=== PATIENT | female | born 1990 | race Caucasian/White ===

== ENCOUNTER 2017-04-28 02:59 | Inpatient (IN) | payer OTHER, BC, MEDICAID ==
[~2017-04-28] VITALS: Ht 157.5 cm; Wt 70.5 kg
[2017-04-28] VITALS (44 sets, daily range): BP systolic 118–199; BP diastolic 63–121
[2017-04-28 03:47] LABS: BILIRUBIN,URINE NEGATIVE (NEGATIVE); KETONES,URINE NEGATIVE (NEGATIVE); LEUKOCYTE ESTERASE ,URINE NEGATIVE (NEGATIVE); NITRITE,URINE NEGATIVE (NEGATIVE); PH,URINE 7 (5-9); PROTEIN,URINE NEGATIVE (NEGATIVE); UROBILINOGEN,URINE NORMAL (NORMAL)
[2017-04-28] MEDS: D5 LR IV SOLUTION 1,000 ML IV SCH ×2 (03:51→11:45)
[2017-04-28] MEDS ORDERED: PREN-142 PO (03:55)
[2017-04-28 04:21] LABS: BASOPHILS % (AUTO) 0 % (0-10); EOSINOPHILS # (AUTO) 0.1 10^3/uL (0.0-0.3); EOSINOPHILS % (AUTO) 1 % (0-10); LYMPHOCYTES % (AUTO) 18 % (12-44); MEAN CORPUSCULAR HEMOGLOBIN 27 PG (25-34); MEAN CORPUSCULAR HGB CONC 34 G/DL (32-36); MEAN CORPUSCULAR VOLUME 79 FL (80-99); MEAN PLATELET VOLUME 11.6 FL (7.4-10.4); MONOCYTES # (AUTO) 0.9 X 10^3 (0.0-1.0); MONOCYTES % (AUTO) 8 % (0-12); NEUTROPHILS # (AUTO) 8.2 X 10^3 (1.8-7.8); NEUTROPHILS % (AUTO) 73 % (42-75); PLATELET COUNT 216 10^3/uL (130-400); RED BLOOD COUNT 4.28 10^6/uL (4.35-5.85); RED CELL DISTRIBUTION WIDTH 13.3 % (10.0-14.5); WHITE BLOOD COUNT 11.2 10^3/uL (4.3-11.0)
[2017-04-28] MEDS ORDERED: SUFENTA 0.6MCG/ML BUPIVA 0.125 100 ML ONE (07:13)
[2017-04-28] MEDS ORDERED: OXYTOCIN/NORMAL SALINE 500 ML IV SCH ×2 (07:24→07:26)
--- NOTE | 2017-04-28 07:24 | History & Physical ---
History and Physical Date Seen by Provider: Apr 28, 2017 Time Seen by Provider: 07:22 this patient is a 26-year-old G1 white female with a due date of May 09, 2017 putting her now at 38-3/7 weeks gestation. She presented with complaint of contractions. She was found to be in active labor. She denies rupture membranes or bleeding at the time of admission however since admission she has begun to leak fairly persistently. She does feel baby moving. She had a negative GBS culture after 35 weeks gestation. She's had no problems with this . Allergies are none Medications are vitamins Past medical history, past surgical history, past obstetric history, family history, social histories are per the antepartum record HEENT exam is normal Neck is supple no lymphadenopathy no thyromegaly Abdomen is gravid soft nontender nondistended Extremities show clubbing cyanosis. There is no Homans sign. Pelvic exam now shows a cervix that is of little bit more than 6 90 percent effaced soft and stretchy. presenting Part is the vertex at the 0 station. Amniotomy is performed with release of a small amount of clear fluid. Laboratory Tests 04/28/17 03:50 Vital Signs Date Time Temp Pulse Resp B/P (MAP) Pulse Ox O2 Delivery O2 Flow Rate FiO2 04/28/17 03:24 98.1 97 18 134/96 assessment and plan term at 38-3/7 weeks gestation and spontaneous labor. Patient will be allowed an epidural. We anticipate a vaginal delivery 38-3/7 weeks' gestation with spontaneous labor Allergies and Home Medications Allergies Coded Allergies: No Known Drug Allergies (Unverified , 04/28/17) Home Medications Vit No.124/Iron/FA 1 Each Tablet, 1 EACH PO DAILY, (Reported) Clinical Quality Measures DVT/VTE Risk/Contraindication: Risk Factor Score Per Nursin RFS Level Per Nursing on Admit: 1=Low/No VTE PPX JOHN PAUL GILMAN MD Apr 28, 2017 7:24 am
[2017-04-28] MEDS ORDERED: BUPIVACAINE 0.25% 30 ML (SENSORCAINE) VIAL ONE (07:30)
[2017-04-28] MEDS ORDERED: oxyCODONE/APAP 10/325MG (PERCOCET 10) TABLET PO PRN (07:30)
[2017-04-28] MEDS ORDERED: ONDANSETRON 4 MG/2 ML (SDV) Z0FRAN IVP PRN (07:30)
[2017-04-28] MEDS ORDERED: BENZOCAINE/MENTHOL (DERMOPLAST) 56 ML CAN TP PRN (07:30)
[2017-04-28] MEDS ORDERED: TETANUS,DIPTH,PERTUSS P/F (BOOSTRIX) 0.5 ML VIAL IM ONE (07:30)
[2017-04-28] MEDS ORDERED: LIDOCAINE PF 2% 5 ML (XYLOCAINE) VIAL ONE (07:30)
[2017-04-28] MEDS ORDERED: fentaNYL INJECTION 100 MCG/2 ML AMP ONE (07:30)
[2017-04-28] MEDS ORDERED: LACTATED RINGERS 1,000 ML IV ONE ×2 (08:49)
[2017-04-28] MEDS ORDERED: LIDOCAINE/EPI 2% 1:200,00 (XYLOCAINE) 10 ML VIAL ONE (08:54)
[2017-04-28] MEDS ORDERED: ONDANSETRON 4 MG/2 ML (SDV) Z0FRAN IV PRN (09:00)
[2017-04-28] MEDS ORDERED: EPIDURAL (SUFENTA 0.6MCG/ML BUPIVA 0.125%) 100 ML BAG EPI PRN (09:00)
[2017-04-28] MEDS ORDERED: NALOXONE 0.4 MG/ML 1 ML (NARCAN) VIAL IV PRN (09:00)
[2017-04-28] MEDS: KETOROLAC 30 MG/ML VIAL IV SCH ×2 (14:08→21:01)
[2017-04-28] MEDS: DOCUSATE SODIUM 100 MG (COLACE) CAP PO SCH (21:01)
[2017-04-28] MEDS: CATHETER FLUSH 10 ML SYR IV SCH (22:00)
[2017-04-29] VITALS: BP 115/78
--- NOTE | 2017-04-29 00:53 | OPERATIVE REPORT ---
DATE OF SERVICE: 04/28/2017 DELIVERY NOTE The patient delivered by term spontaneous vaginal delivery at 38 and 3/7 weeks gestation, a viable female with Apgars of 8 and 9 at 1 and 5 minutes respectively. Weight is 7 pounds and 4 ounces. time of 12:29 and cord blood gas of 7.23. The was delivered over midline episiotomy that was performed at the patient's request when she could not push the baby through the perineum and baby's heart rate had been episodically down into the 80s, the episiotomy shortened the second stage of labor and allowed a smooth controlled delivery. The was bulb suctioned on delivery of the head and again on completion of delivery. The infant was dried and warmed, and suctioned and stimulated. The umbilical cord was doubly clamped and cut, and the infant passed to mom's abdomen. Cord bloods were obtained. The placenta delivered spontaneously Par[place] and was normal with a 3-vessel cord. The placenta did go to pathology for permanent section. Cord blood gas was obtained secondary to the relatively deep decels. The cervix, vagina, rectum and perineum were examined and were found intact, except for the midline episiotomy, which was repaired with a single suture of 3-0 Vicryl in the usual manner to good reapproximation and good hemostasis. There were several overt condyloma on the perineum, one at the introitus and one up on the labia majora, inferiorly on the right. These four lesions were removed sharply under the epidural and augmented local in the perineum for the delivery. Those specimens were sent to pathology for permanent section. These had been noted during the and the patient had asked for them to be removed. The sponge and needle counts were correct on completion of the delivery and the repair. The patient tolerated the delivery and the repair well. Estimated blood loss was around 200 mL. The patient remained in the LDR for recovery. The baby remained with the mom. Job ID: [id number] DocumentID: [id number] Dictated Date: 04/28/2017 12:50:49 Crushing Machine Operator Date: 04/28/2017 23:59:50 Dictated By: JOHN PAUL GILMAN MD MTDD
[2017-04-29] MEDS: KETOROLAC 30 MG/ML VIAL IV SCH (03:11)
[2017-04-29 04:15] VITALS: BP 104/72
[2017-04-29 05:13] LABS: BASOPHILS % (AUTO) 0 % (0-10); EOSINOPHILS % (AUTO) 0 % (0-10); LYMPHOCYTES # (AUTO) 1.8 X 10^3 (1.0-4.0); LYMPHOCYTES % (AUTO) 12 % (12-44); MEAN CORPUSCULAR HEMOGLOBIN 27 PG (25-34); MEAN CORPUSCULAR HGB CONC 33 G/DL (32-36); MEAN CORPUSCULAR VOLUME 80 FL (80-99); MEAN PLATELET VOLUME 10.6 FL (7.4-10.4); MONOCYTES # (AUTO) 1.1 X 10^3 (0.0-1.0); MONOCYTES % (AUTO) 7 % (0-12); NEUTROPHILS # (AUTO) 11.9 X 10^3 (1.8-7.8); NEUTROPHILS % (AUTO) 80 % (42-75); PLATELET COUNT 169 10^3/uL (130-400); RED BLOOD COUNT 3.57 10^6/uL (4.35-5.85); RED CELL DISTRIBUTION WIDTH 13.2 % (10.0-14.5); WHITE BLOOD COUNT 14.9 10^3/uL (4.3-11.0)
[2017-04-29] MEDS: CATHETER FLUSH 10 ML SYR IV SCH (06:23)
--- NOTE | 2017-04-29 07:46 | Progress Note-Standard ---
Standard Progress Note Progress Notes/Assess & Plan Date Seen by Provider: Apr 29, 2017 Time Seen by Provider: 07:42 Progress/Assessment & Plan this patient is without complaint. She is ambulating, voiding, tolerating by mouth, has good pain control. Patient denies chest pain, denies shortness of breath, denies nausea vomiting, denies headache. Vital Signs Date Time Temp Pulse Resp B/P (MAP) Pulse Ox O2 Delivery O2 Flow Rate FiO2 04/29/17 04:15 96.4 97 18 104/72 97 Room Air 04/29/17 00:00 97.4 97 19 115/78 97 Room Air 04/28/17 20:00 98.3 104 18 121/80 98 Room Air 04/28/17 14:30 105 18 122/71 04/28/17 14:15 105 18 121/72 04/28/17 14:05 122 18 124/88 04/28/17 13:15 98.7 115 18 127/74 04/28/17 13:00 101 18 126/70 04/28/17 12:46 112 18 128/94 04/28/17 12:32 113 18 148/64 04/28/17 12:18 114 18 199/121 04/28/17 12:01 130 18 141/86 04/28/17 11:47 94 18 130/79 04/28/17 11:33 86 18 120/69 04/28/17 11:17 90 18 121/66 04/28/17 11:02 97.9 90 18 118/72 04/28/17 10:48 83 18 119/87 04/28/17 10:31 84 18 120/83 04/28/17 10:16 86 18 125/76 04/28/17 10:02 91 18 145/76 04/28/17 09:47 92 18 124/76 99 04/28/17 09:32 100 18 133/77 99 04/28/17 09:18 97 18 125/70 100 04/28/17 09:02 97.4 93 18 133/63 100 04/28/17 08:49 96 18 125/82 99 04/28/17 08:30 99 18 145/68 100 04/28/17 08:27 101 18 126/82 100 04/28/17 08:25 101 18 134/85 100 04/28/17 08:22 103 18 138/80 100 04/28/17 08:18 52 18 139/83 100 04/28/17 08:16 105 18 134/80 100 04/28/17 08:12 103 18 139/73 99 04/28/17 08:09 103 18 139/73 100 04/28/17 08:06 104 18 136/83 100 04/28/17 08:03 105 18 139/85 100 04/28/17 08:00 104 18 132/85 100 04/28/17 07:59 97.2 104 18 133/85 99 04/28/17 07:57 110 18 143/104 99 04/28/17 07:54 111 18 137/101 96 04/28/17 07:51 100 18 134/93 96 04/28/17 07:48 103 18 134/91 96 04/28/17 07:45 106 18 147/99 96 Vital signs are stable. Patient is afebrile. Fundus is firm below the umbilicus and nontender. Extremities show no clubbing cyanosis. There is no Homans sign. There is some pretibial pitting edema that is normal. Assessment and plan day number 1 status post term spontaneous vaginal delivery at 38-3/7 weeks gestation. Patient is doing well and plan is for routine convalescence care with discharge home tomorrow. If patient request discharge home today then that would be allowed. Final Diagnosis 38-3/7 weeks spontaneous vaginal delivery JOHN PAUL GILMAN MD Apr 29, 2017 7:46 am
[2017-04-29] MEDS ORDERED: OXYC-465 PO (07:50)
[2017-04-29] MEDS ORDERED: IBUP-1780 PO (07:50)
[2017-04-29] MEDS ORDERED: DOCU100C37 PO (07:50)
--- NOTE | 2017-04-29 07:51 | Discharge Instructions ---
Discharge Instructions Discharge Medications New, Converted or Re-Newed RX: RX on Chart Patient Instructions Patient Instructions: as directed Return to The Hospital For: as directed Activity & Diet Discharge Diet: No Restrictions Activity as Tolerated: No Orders-Post D/C & Referrals Follow Up Appt: Call to make follow up appt. for patient in 4 weeks. Activity Per routine post vaginal delivery instructions. Diet as tolerated Patient may shower or tub bathe as desired. JOHN PAUL IGLMAN MD Apr 29, 2017 7:51 am
[2017-04-29 09:30] VITALS: BP 109/71
[2017-04-29] MEDS: IBUPROFEN 800 MG (MOTRIN) TAB PO SCH ×2 (10:43→15:53)
[2017-04-29] MEDS: DOCUSATE SODIUM 100 MG (COLACE) CAP PO SCH (10:43)
[2017-04-29 12:35] VITALS: BP 122/70
--- NOTE | 2017-04-29 12:48 | Anesthesia-Regional Post-Op ---
Regional Patient Condition Mental Status: Alert, Oriented x3 Circulation: Same as Pre-Op Headache: Absent Sensation: Full Recovery Motor Block: Absent Post Op Complications Complications None Follow Up Care/Instructions Patient Instructions None needed. Anesthesia/Patient Condition Patient is doing well, no complaints, stable vital signs, no apparent adverse anesthesia problems. No complications reported per nursing. [place] [facility] [place] DENEEN COBB CRNA Apr 29, 2017 12:48
[2017-04-29 18:45] VITALS: BP 122/70
== END 2017-04-29 18:45 | disposition home or self-care (01) | DRG 983 ==
LOC: WSo 02:59 → LDRP 03:00 → WSo 03:25 → LDRP 15:00
PROVIDERS: ADMIT Obstetrics & Gynecology; ATTEND Obstetrics & Gynecology
PROC: 0W8NXZZ Division of Female Perineum, External Approach (ICD-10-PCS; principal; 2017-04-28)
PROC: 10E0XZZ Delivery of Products of Conception, External Approach (ICD-10-PCS; 2017-04-28)
PROC: 0WBN0ZZ Excision of Female Perineum, Open Approach (ICD-10-PCS; 2017-04-28)
PROC: 0UBM0ZZ Excision of Vulva, Open Approach (ICD-10-PCS; 2017-04-28)
DX: O98.32 Other infections with a predominantly sexual mode of transmission complicating childbirth (principal); A63.0 Anogenital (venereal) warts; Z3A.38 38 weeks gestation of pregnancy; Z37.0 Single live birth
CPT/HCPCS: 36415; 81000; 85025; 86850; 86900; 86901; 99212

== ENCOUNTER 2019-12-30 12:02 | Day surgery (SDC) | payer MEDICAID ==
[2019-12-30] VITALS (10 sets, daily range): BP systolic 102–126; BP diastolic 57–82
[~2019-12-30] VITALS: Ht 157.5 cm; Wt 63.6 kg
[~2019-12-30 12:02] MED LIST: DOCU100C37 PO; IBUP-1780 PO; OXYC-465 PO; PREN-142 PO
[2019-12-30] MEDS ORDERED: ceFAZolin INJECTION 1,000 MG in WATER (STERILE) FOR INJECTION 10 ML IV ONE (12:30)
[2019-12-30] MEDS: LACTATED RINGERS 1,000 ML IV PRN ×2 (12:41→14:55)
[2019-12-30 12:54] LABS: BASOPHILS % (AUTO) 0 % (0-10); EOSINOPHILS % (AUTO) 0 % (0-10); HEMATOCRIT 37 % (35-52); HEMOGLOBIN 11.8 G/DL (11.5-16.0); LYMPHOCYTES # (AUTO) 1.7 X 10^3 (1.0-4.0); LYMPHOCYTES % (AUTO) 21 % (12-44); MEAN CORPUSCULAR HEMOGLOBIN 23 PG (25-34); MEAN CORPUSCULAR HGB CONC 32 G/DL (32-36); MEAN CORPUSCULAR VOLUME 73 FL (80-99); MEAN PLATELET VOLUME 10.4 FL (7.4-10.4); MONOCYTES # (AUTO) 0.6 X 10^3 (0.0-1.0); MONOCYTES % (AUTO) 8 % (0-12); NEUTROPHILS # (AUTO) 5.8 X 10^3 (1.8-7.8); NEUTROPHILS % (AUTO) 71 % (42-75); PLATELET COUNT 205 10^3/uL (130-400); RED CELL DISTRIBUTION WIDTH 18.6 % (10.0-14.5); WHITE BLOOD COUNT 8.2 10^3/uL (4.3-11.0)
--- OUTSIDE RECORDS SUMMARY | 2019-12-30 13:05 | XMS REPORT | Continuity of Care Document ---
Author Organization Unknown Address Unknown Phone Unavailable Allergies Active Description Code Type Severity Reaction Onset Reported/Identified Relationship to Patient Clinical Status Yes NO KNOWN DRUG ALLERGIES UNKNOWN NO KNOWN DRUG ALLERG Yes NO KNOWN DRUG ALLERGIES UNKNOWN UNKNOWN Yes No Known Drug Allergies [id number] Drug Allergy Unknown N/A 04/28/2017 Medications There is no data. 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 04/29/2017 JOHN PAUL GILMAN MD, Ot O98.32 OTH INFECTIONS W SEXL MODE OF TRANSMISS 04/29/2017 JOHN PAUL GILMAN MD Ot Z37.0 SINGLE LIVE 04/29/2017 JOHN PAUL GILMAN MD, Ot Z3A.38 38 WEEKS GESTATION OF 08/14/2017 Rosey Gallo W 786.2 COUGH 08/14/2017 Rosey Gallo W R05 COUGH 08/14/2017 W 786.2 COUGH 08/14/2017 W 787.91 BAHRAT RRHEA 08/14/2017 W K52.89 OTH ER SPECIFIED NONINFECTIVE GASTROENTERITIS AND COLITIS 08/14/2017 W R05 COUGH 08/14/2017 Sabino Rosey W 786.2 COUGH 08/14/2017 Sabino Rosey W R05 COUGH 05/09/2018 W 462 ACUTE PHARYNGITIS 05/09/2018 W J02.9 ACUT E PHARYNGITIS, UNSPECIFIED 05/14/2018 Cheryle Rocha W 462 ACUTE PHARYNGITIS 05/14/2018 Cheryle Rocha W J02.9 ACUTE PHARYNGITIS, UNSPECIFIED 05/14/2018 W 462 ACUTE PHARYNGITIS 05/14/2018 W J02.9 ACUT E PHARYNGITIS, UNSPECIFIED Procedures Code Description Performed By Per saul On [id number] EX CISION OF VULVA, OPEN APPROACH 04/28/2017 [id number] DI VISION OF FEMALE PERINEUM, EXTERNAL AP 04/28/2017 [id number] EX CISION OF FEMALE PERINEUM, OPEN APPROA 04/28/2017 [id number] DE LIVERY OF PRODUCTS OF CONCEPTION, EXTE 04/28/2017 Results Test Result Range Complete urinalysis with reflex to cultu re - 04/28/17 03:35 Urine color determination YELLOW NRG Urine clarity determination CLEAR NR G Urine pH measurement by test strip 7 5-9 Specific gravity of urine by test strip 1.010 1.016-1.022 Urine protein assay by test strip, semi-quantitative NEGATIVE NEGATIVE Urine glucose detection by automated test strip NE GATIVE NEGATIVE Erythrocytes detection in urine sediment by light micr oscopy NEGATIVE NEGATIVE Urine ketones detection by automated test strip NE GATIVE NEGATIVE Urine nitrite detection by test strip NEGATIVE NEGATIVE Urine total bilirubin detection by test strip NEGA TIVE NEGATIVE Urine urobilinogen measurement by automated test strip (mass/volume) NORMAL NORMAL Urine leukocyte esterase detection by dipstick NEG ATIVE NEGATIVE Automated urine sediment erythrocyte cou nt by microscopy (number/high power field) NONE NRG Automated urine sediment leukocyte count by microscopy (number/high power field) NONE NRG Bacteria detection in urine sediment by light microsco py NEGATIVE NRG Squamous epithelial cells detection in u rine sediment by light microscopy 2-5 NRG Crystals detection in urine sediment by light microsco py NONE NRG Casts detection in urine sediment by light microscopy NONE NRG Mucus detection in urine sediment by light microscopy SMALL NRG Complete urinalysis with reflex to culture NO NRG Complete blood count (CBC) with automate d white blood cell (WBC) differential - 04/28/17 03:50 Blood leukocytes automated count (number/volume) 11.2 10*3/uL 4.3-11.0 Blood erythrocytes automated count (number/volume) 4.28 10*6/uL 4.35-5.85 Venous blood hemoglobin measurement (mass/volume) 11.5 g/dL 11.5-16.0 Blood hematocrit (volume fraction) 34 % 35-52 Automated erythrocyte mean corpuscular volume 79 [ foz_us] 80-99 Automated erythrocyte mean corpuscular h emoglobin (mass per erythrocyte) 27 pg 25-34 Automated erythrocyte mean corpuscular h emoglobin concentration measurement (mass/volume) 34 g/dL 32-36 Automated erythrocyte distribution width ratio 13. 3 % 10.0- 14.5 Automated blood platelet count (count/volume) 216 10*3/uL 130-400 Automated blood platelet mean volume measurement 11.6 [foz_us] 7.4-10.4 Automated blood neutrophils/100 leukocytes 73 % 42-75 Automated blood lymphocytes/100 leukocytes 18 % 12-44 Blood monocytes/100 leukocytes 8 % 0-12 Automated blood eosinophils/100 leukocytes 1 % 0-10 Automated blood basophils/100 leukocytes 0 % 0-10 Blood neutrophils automated count (number/volume) 8.2 10*3 1.8-7.8 Blood lymphocytes automated count (number/volume) 2.0 10*3 1.0-4.0 Blood monocytes automated count (number/volume) 0. 9 10*3 0.0-1.0 Automated eosinophil count 0.1 10*3/uL 0 .0-0.3 Automated blood basophil count (count/volume) 0.0 10*3/uL 0.0-0.1 Blood type T Indirect antibody screen pa henna - 04/28/17 03:50 ABO+Rh group AP NRG Transfusion band number [id number] NR Blood group antibody screen NEGATIVE NR G Complete blood count (CBC) with automate d white blood cell (WBC) differential - 04/29/17 05:05 Blood leukocytes automated count (number/volume) 14.9 10*3/uL 4.3-11.0 Blood erythrocytes automated count (number/volume) 3.57 10*6/uL 4.35-5.85 Venous blood hemoglobin measurement (mass/volume) 9.6 g/dL 11.5-16.0 Blood hematocrit (volume fraction) 29 % 35-52 Automated erythrocyte mean corpuscular volume 80 [ foz_us] 80-99 Automated erythrocyte mean corpuscular h emoglobin (mass per erythrocyte) 27 pg 25-34 Automated erythrocyte mean corpuscular h emoglobin concentration measurement (mass/volume) 33 g/dL 32-36 Automated erythrocyte distribution width ratio 13. 2 % 10.0- 14.5 Automated blood platelet count (count/volume) 169 10*3/uL 130-400 Automated blood platelet mean volume measurement 10.6 [foz_us] 7.4-10.4 Automated blood neutrophils/100 leukocytes 80 % 42-75 Automated blood lymphocytes/100 leukocytes 12 % 12-44 Blood monocytes/100 leukocytes 7 % 0-12 Automated blood eosinophils/100 leukocytes 0 % 0-10 Automated blood basophils/100 leukocytes 0 % 0-10 Blood neutrophils automated count (number/volume) 11.9 10*3 1.8-7.8 Blood lymphocytes automated count (number/volume) 1.8 10*3 1.0-4.0 Blood monocytes automated count (number/volume) 1. 1 10*3 0.0-1.0 Automated eosinophil count 0.0 10*3/uL 0 .0-0.3 Automated blood basophil count (count/volume) 0.0 10*3/uL 0.0-0.1 Mycoplasma - 08/14/17 12:04 Mycoplasma Positive Negative Other Culture - 05/14/18 11:55 FINAL CULTURE RESULTS NO Pathogens Isolated MEDIA PLATED Setup at 12:07 on 05/14/2018 Encounters ACCT No. Visit Date/Time Discharge Status Pt. Type Provider Facility Loc./Unit Complaint [id number] 05/14/2018 11:52:00 05/14/2018 23:59: 00 DIS Outpatient Cheryle Rocha [id number] 08/14/2017 12:01:00 08/14/2017 23:59: 00 DIS Outpatient Rosey Gallo [id number] 05/14/2018 11:33:00 Document Registration [id number] 05/09/2018 10:42:00 Document Registration [id number] 08/14/2017 11:27:00 Document Registration [id number] 04/28/2017 03:25:00 017 18:45:00 DIS Inpatient MUKUL ELAM, JOHN PAUL Senior [facility] LAB[facility]
[2019-12-30] MEDS ORDERED: MIDAZOLAM 2 MG/2 ML (VERSED) VIAL ONE (14:19)
[2019-12-30] MEDS ORDERED: fentaNYL INJECTION 100 MCG/2 ML AMP ONE (14:19)
[2019-12-30] MEDS ORDERED: SEVOFLURANE (ULTANE) 15 ML INHAL SOLN ONE (14:25)
[2019-12-30] MEDS ORDERED: ONDANSETRON 4 MG/2 ML (SDV) Z0FRAN ONE (14:25)
[2019-12-30] MEDS ORDERED: proPOfol 200 MG/20 ML (DIPRIVAN) VIAL IV ONE (14:25)
[2019-12-30] MEDS ORDERED: LIDOCAINE PF 2% 5 ML (XYLOCAINE) VIAL ONE (14:25)
--- NOTE | 2019-12-30 14:34 | Progress Note-Pre Operative ---
Pre-Operative Progress Note H&P Reviewed The H&P was reviewed, patient examined and no changes noted. Date Seen by Provider: Dec 30, 2019 Time Seen by Provider: 14:34 Date H&P Reviewed: Dec 30, 2019 Time H&P Reviewed: 14:34 Pre-Operative Diagnosis: Missed JOHN PAUL DAVIS MD Dec 30, 2019 14:34
[2019-12-30] MEDS ORDERED: D5 LR IV SOLUTION 1,000 ML IV SCH (14:35)
--- NOTE | 2019-12-30 14:35 | Progress Note-Post Operative ---
Post-Operative Progess Note Surgeon (s)/Enrichment Teacher (s) Surgeon JOHN PAUL GILMAN MD Enrichment Teacher: None Pre-Operative Diagnosis Missed AB Post-Operative Diagnosis same Procedure & Operative Findings Date of Procedure 12/30/19 Procedure Performed/Findings D&C Anesthesia Type geta Estimated Blood Loss Estimated blood loss (mL): 100cc Specimens/Packing Specimens Removed Uterine contents/products of conception JOHN PAUL GILMAN MD Dec 30, 2019 14:35
[2019-12-30] MEDS ORDERED: IBUP-1780 PO (14:36)
--- NOTE | 2019-12-30 14:37 | Discharge Inst-Surgical ---
Discharge Inst-Surgical Depart Medication/Instructions New, Converted or Re-Newed RX: RX on Chart Consults/Follow Up Patient Instructions: as directed Orders & Referrals Follow Up Appt: Call to make follow up appt. for patient in 2 weeks. Activity: Rest for 24 hours, than as tolerated. Please call in RX to patient pharmacy. Diet: As tolerated- shower or tub bathe as desired. No driving for 24 hours, no alcoholic beverages for 24 hours, and nothing per vagina (no tampons, douching, or intercourse) for 2 weeks. Patient to return to the clinic as soon as possible for: Temperature greater than 101F, Severe Pain, Foul discharge from incision or vagina, Excessive Bleeding (more than a period). Activity Activity as Tolerated: No Diet Discharge Diet: No Restrictions JOHN PAUL GILMAN MD Dec 30, 2019 14:37
[2019-12-30] MEDS ORDERED: HYDROcodone/APAP 10 MG/325 MG (LORTAB) TAB PO PRN (14:45)
[2019-12-30] MEDS ORDERED: KETOROLAC 30 MG/ML VIAL IVP ONE (14:45)
[2019-12-30] MEDS ORDERED: MEPERIDINE (DEMEROL) INJ 100 MG/ML IM ONE (14:45)
[2019-12-30] MEDS ORDERED: PROMETHAZINE INJ 25 MG/ML (PHENERGAN) AMP IM ONE (14:45)
[2019-12-30] MEDS ORDERED: ONDANSETRON 4 MG/2 ML (SDV) Z0FRAN IVP PRN ×2 (14:45→15:15)
--- NOTE | 2019-12-30 15:04 | Anesthesia-General Post-Op ---
General Patient Condition Mental Status/LOC: Same as Preop Cardiovascular: Satisfactory Nausea/Vomiting: Absent Respiratory: Satisfactory Pain: Controlled Complications: Absent Post Op Complications Complications None Follow Up Care/Instructions Patient Instructions None needed. Anesthesia/Patient Condition Patient Condition Patient is doing well, no complaints, stable vital signs, no apparent adverse anesthesia problems. No complications reported per nursing. CARLI COLBY CRNA Dec 30, 2019 15:04
[2019-12-30] MEDS ORDERED: morphine INJ 10 MG/ML 1ML (SYR OR VIAL) IVP ONE (15:15)
[2019-12-30] MEDS ORDERED: KETOROLAC 30 MG/ML VIAL ONE (15:23)
--- NOTE | 2019-12-31 00:56 | OPERATIVE REPORT ---
DATE OF SERVICE: 12/30/2019 PREOPERATIVE DIAGNOSIS: A 12 weeks demise. POSTOPERATIVE DIAGNOSIS: A 12 weeks demise. OPERATIVE PROCEDURE: D and C for 12-week demise/missed AB. OPERATIVE DESCRIPTION: With the patient in supine position under satisfactory general anesthesia, she was repositioned in dorsal lithotomy position in the [facility] stirrups and prepped and draped in the usual fashion for vaginal surgery. Urinary bladder had been drained prior to coming to the operating room. Weighted speculum placed in posterior fornix of vagina, cervix exposed and grasped anteriorly with single tooth tenaculum. Uterus sounded to 14 cm with uterine sound. The cervix was then serially dilated with Rai dilators to a #20 Rai and then a #9 curved suction curette was introduced and the endometrial cavity curettaged with removal of a large amount of trophoblastic and decidual appearing tissue, blood clot, membranes and debris. No specific parts were identified. The endometrial cavity was then sharply curettaged in all 4 quadrants to good uterine cry. The curved suction curette was reintroduced. All blood clot and debris were evacuated from the uterus. The curette was removed. There was minimal bleeding from the cervical os. The tenaculum was removed. There was some bleeding from the puncture site. This was touched with silver nitrate to effect hemostasis. With hemostasis assured now with sponge, needle counts correct. Estimated blood loss around 100 mL. The patient was uneventfully awakened from her general anesthesia and transferred to the recovery room in stable condition with plans for discharge home PAR. Job ID: [id number] DocumentID: [id number] Dictated Date: 12/30/2019 14:59:53 Home Care Coordinator Date: 12/31/2019 00:55:28 Dictated By: JOHN PAUL GILMAN MD
== END 2019-12-30 16:50 | disposition home or self-care (01) ==
LOC: SDC 12:02
PROVIDERS: ATTEND Obstetrics & Gynecology
DX: O02.1 Missed abortion (principal); Z11.2 Encounter for screening for other bacterial diseases; Z20.828 Contact with and (suspected) exposure to other viral communicable diseases; Z3A.12 12 weeks gestation of pregnancy
CPT/HCPCS: 59820; 85025; 87081; U0002; 36415; 87635

== ENCOUNTER 2020-10-28 15:07 | Observation (INO) | payer MEDICAID ==
[~2020-10-28] VITALS: Ht 157 cm; Wt 72.5 kg
[~2020-10-28 15:07] MED LIST changes: -OXYC-465 PO; +OXYC-556 PO
[2020-10-28] MEDS ORDERED: NS IV 1000 ML 1,000 ML ONE (15:35)
[2020-10-28] MEDS ORDERED: ACETAMINOPHEN 500 MG TAB (TYLENOL) PO ONE (15:45)
[2020-10-28 15:48] LABS: BILIRUBIN,URINE NEGATIVE (NEGATIVE); CLARITY,URINE SL CLOUDY; COLOR,URINE YELLOW; GLUCOSE, URINE (UA) NEGATIVE (NEGATIVE); KETONES,URINE 2+ (NEGATIVE); LEUKOCYTE ESTERASE ,URINE 3+ (NEGATIVE); NITRITE,URINE POSITIVE (NEGATIVE); PH,URINE 7.5 (5-9); PROTEIN,URINE 1+ (NEGATIVE)
--- NOTE | 2020-10-28 15:50 | ED General ---
General Chief Complaint: Fever-Adult/Adol Stated Complaint: FEVER/HEADACHE/BACK PAIN NO APPETITE/NAUSEA Source of Information: Patient Exam Limitations: No Limitations History of Present Illness Date Seen by Provider: October 28, 2020 Time Seen by Provider: 15:35 Initial Comments Patient is a 30-year-old female who presents to the emergency department today with a chief complaint of right flank pain and fever for the last 3 or 4 days. Patient states that she started having pain Thursday night into and then on Thursday felt okay. She states as the day progressed on Thursday she started developing fever and flank pain with nausea and decreased appetite. Patient is approximately 30 weeks with an estimated due date of January 06, 2021. She gets care with Dr. Montoya. Patient states that she has had about a half an apple today only as she has had decreased appetite. She has been persistently nauseated. She denies any burning with urination or darker than normal urine. No abnormal vaginal discharge. She states the pain is constant and worsened by taking a deep breath on the right. She denies cough. No URI symptoms such as runny nose, congestion, sore throat. No diarrhea. No sick contacts at home. Her works for [employer] and is fully vaccinated against Covid. She is a [id number]-biqd mom. She is not Covid vaccinated. She did get a flu shot this year. She is a G2, P1. All other review of systems reviewed and negative except as stated above. Timing/Duration: 2-3 Days Severity: Moderate Associated Systoms: Diaphoresis, Fever/Chills, Nausea/Vomiting Allergies and Home Medications Allergies Coded Allergies: No Known Drug Allergies (Unverified , 12/30/19) Home Medications Ibuprofen 800 Mg Tablet, 800 MG PO Q6H PRN for PAIN Prescribed by: JOHN PAUL ALVARADO on 12/30/19 1436 Patient Home Medication List Home Medication List Reviewed: Yes Review of Systems Review of Systems Constitutional: see HPI, chills, fever, malaise EENTM: no symptoms reported Respiratory: no symptoms reported Cardiovascular: no symptoms reported Gastrointestinal: other (Right flank pain) Genitourinary: No dysuria, No frequency, No hematuria, No hesitancy, No incontinence : Yes Expected Date of Delivery: Jan 06, 2021 Musculoskeletal: no symptoms reported Skin: no symptoms reported Psychiatric/Neurological: No Symptoms Reported All Other Systems Reviewed Negative Unless Noted: Yes Past Ujvueio-Italba-Lgctvm Hx Patient Social History Recent Hopitalizations: No Immunizations Up To Date Date of Influenza Vaccine: Mar 27, 2017 Seasonal Allergies Seasonal Allergies: Yes Past Medical History Surgeries: Yes (wisdom teeth) Respiratory: No Cardiac: No Neurological: No Female Reproductive Disorders: Denies Genitourinary: No Gastrointestinal: No Musculoskeletal: No Endocrine: No HEENT: No Cancer: No Psychosocial: No Integumentary: No Blood Disorders: No Adverse Reaction/Blood Tranf: No Family Medical History Hypertension (Mother) Physical Exam Vital Signs Vital Signs - First Documented 10/28/20 16:01 Temp 39.2 Pulse 140 Resp 18 B/P (MAP) 125/72 (89) Pulse Ox 99 Capillary Refill : Height, Weight, BMI Height: 5'2.00" Weight: 155lbs. 6.0oz. [id number]; 25.63 BMI Method: General Appearance: No Apparent Distress, WD/WN Eyes: Bilateral Eye Normal Inspection, Bilateral Eye PERRL, Bilateral Eye EOMI HEENT: PERRL/EOMI Neck: Normal Inspection Respiratory: Lungs Clear, Normal Breath Sounds, No Accessory Muscle Use, No Respiratory Distress Cardiovascular: Regular Rate, Rhythm, Tachycardia Gastrointestinal: Normal Bowel Sounds, Non Tender, Soft, Other ( heart tones 130s to 170s) Back: Normal Inspection, CVA Tenderness (R) Extremity: Normal Capillary Refill, Normal Inspection, Normal Range of Motion, Non Tender, No Calf Tenderness Skin: Normal Color, Warm/Dry Focused Exam Lactate Level 10/28/20 15:55: Lactic Acid Level 1.96 Lactic Acid Level Laboratory Tests Test 10/28/20 15:55 Lactic Acid Level 1.96 MMOL/L (0.50-2.00) Progress/Results/Core Measures Suspected Sepsis SIRS Temperature: Pulse: Respiratory Rate: Laboratory Tests 10/28/20 15:55: White Blood Count 19.9H Blood Pressure / Mean: 10/28/20 15:55: Lactic Acid Level 1.96 Laboratory Tests 10/28/20 15:55: Creatinine 0.68, Platelet Count 162, Total Bilirubin 0.4 Results/Orders Lab Results Laboratory Tests Test 10/28/20 15:37 10/28/20 15:55 Range/Units Urine Color YELLOW Urine Clarity SL CLOUDY Urine pH 7.5 5-9 Urine Specific [place] 1.010 L 1.016-1.022 Urine Protein 1+ H NEGATIVE Urine Glucose (UA) NEGATIVE NEGATIVE Urine Ketones 2+ H NEGATIVE Urine Nitrite POSITIVE H NEGATIVE Urine Bilirubin NEGATIVE NEGATIVE Urine Urobilinogen 0.2 < = 1.0 MG/DL Urine Leukocyte Esterase 3+ H NEGATIVE Urine RBC (Auto) 1+ H NEGATIVE Urine RBC 0-2 /HPF Urine WBC 50-100 H /HPF Urine Squamous Epithelial Cells 10-25 H /HPF Urine Crystals NONE /LPF Urine Bacteria LARGE H /HPF Urine Casts NONE /LPF Urine Mucus NEGATIVE /LPF Urine Culture Indicated CULTURE PENDING White Blood Count 19.9 H 4.3-11.0 10^3/uL Red Blood Count 4.03 3.80-5.11 10^6/uL Hemoglobin 11.3 L 11.5-16.0 g/dL Hematocrit 33 L 35-52 % Mean Corpuscular Volume 83 80-99 fL Mean Corpuscular Hemoglobin 28 25-34 pg Mean Corpuscular Hemoglobin Concent 34 32-36 g/dL Red Cell Distribution Width 13.9 10.0-14.5 % Platelet Count 162 130-400 10^3/uL Mean Platelet Volume 11.1 9.0-12.2 fL Immature Granulocyte % (Auto) 1 % Neutrophils (%) (Auto) 82 H 42-75 % Lymphocytes (%) (Auto) 5 L 12-44 % Monocytes (%) (Auto) 11 0-12 % Eosinophils (%) (Auto) 0 0-10 % Basophils (%) (Auto) 0 0-10 % Neutrophils # (Auto) 16.3 H 1.8-7.8 10^3/uL Lymphocytes # (Auto) 1.0 1.0-4.0 10^3/uL Monocytes # (Auto) 2.3 H 0.0-1.0 10^3/uL Eosinophils # (Auto) 0.1 0.0-0.3 10^3/uL Basophils # (Auto) 0.1 0.0-0.1 10^3/uL Immature Granulocyte # (Auto) 0.2 H 0.0-0.1 10^3/uL Neutrophils % (Manual) 79 % Lymphocytes % (Manual) 9 % Monocytes % (Manual) 9 % Eosinophils % (Manual) 0 % Basophils % (Manual) 0 % Metamyelocytes % 1 % Band Neutrophils 2 % Blood Morphology Comment NORMAL Sodium Level 131 L 135-145 MMOL/L Potassium Level 3.9 3.6-5.0 MMOL/L Chloride Level 99 98-107 MMOL/L Carbon Dioxide Level 19 L 21-32 MMOL/L Anion Gap 13 5-14 MMOL/L Blood Urea Nitrogen 4 L 7-18 MG/DL Creatinine 0.68 0.60-1.30 MG/DL Estimat Glomerular Filtration Rate > 60 BUN/Creatinine Ratio 6 Glucose Level 118 H 70-105 MG/DL Lactic Acid Level 1.96 0.50-2.00 MMOL/L Calcium Level 9.3 8.5-10.1 MG/DL Corrected Calcium 9.9 8.5-10.1 MG/DL Total Bilirubin 0.4 0.1-1.0 MG/DL Aspartate Amino Transf (AST/SGOT) 27 5-34 U/L Alanine Aminotransferase (ALT/SGPT) 16 0-55 U/L Alkaline Phosphatase 75 40-136 U/L Total Protein 7.1 6.4-8.2 GM/DL Albumin 3.3 3.2-4.5 GM/DL SARS-CoV-2 RNA (RT-PCR) Not Detected Not Detecte My Orders Orders - HUY ROSE MD Cbc With Automated Diff (10/28/20 15:39) Comprehensive Metabolic Panel (10/28/20 15:39) Blood Culture (10/28/20 15:39) Urinalysis (10/28/20 15:39) Urine Culture (10/28/20 15:39) Ed Iv/Invasive Line Start (10/28/20 15:39) Ed Iv/Invasive Line Start (10/28/20 15:39) Vital Signs Adult Sepsis Patie Q15M (10/28/20 15:39) O2 (10/28/20 15:39) Remove Rings In Anticipation O (10/28/20 15:39) Lactic Acid Analyzer (10/28/20 15:39) Covid 19 Inhouse Test (10/28/20 15:39) Acetaminophen Tablet (Tylenol Tablet) (10/28/20 15:45) Ns Iv 1000 Ml (Sodium Chloride 0.9%) (10/28/20 15:35) Manual Differential (10/28/20 15:55) Ceftriaxone For Iv Use (Rocephin For I (10/28/20 16:30) Medications Given in ED Current Medications Medications Dose Ordered Sig/Killian Route Start Time Stop Time Status Last Admin Dose Admin Acetaminophen 1,000 mg ONCE ONCE PO 10/28/20 15:45 10/28/20 15:46 DC 10/28/20 15:48 1,000 MG Ceftriaxone Sodium 1000 mg/ Sterile Water 10 ml @ 200 mls/hr ONCE ONCE IV 10/28/20 16:30 10/28/20 16:32 DC 10/28/20 16:46 200 MLS/HR Sodium Chloride 1,000 ml @ ud STK-MED ONCE .ROUTE 10/28/20 15:35 10/28/20 15:44 DC 10/28/20 16:01 999 MLS/HR Vital Signs/I&O 10/28/20 16:01 Temp 39.2 Pulse 140 Resp 18 B/P (MAP) 125/72 (89) Pulse Ox 99 Capillary Refill : Departure Communication (Admissions) Time/Spoke to Admitting Phy: 16:[address] Montoya accepts the patient for admission Impression Primary Impression: Pyelonephritis affecting Qualified Codes: O23.03 - Infections of kidney in , third trimester Disposition: ADMITTED INPATIENT Condition: Stable Admissions Decision to Admit Reason: Admit from ER (General) Decision to Admit/Date: October 28, 2020 Time/Decision to Admit Time: 16:49 Departure-Patient Inst. Referrals: TIFFANY MAY MD (PCP/Family) Primary Care Physician HYU ROSE MD October 28, 2020 15:50
[2020-10-28 16:03] LABS: BACTERIA,URINE LARGE /HPF; RBC,URINE 0-2 /HPF; WBC,URINE 50-100 /HPF
[2020-10-28 16:07] LABS: BASOPHILS # (AUTO) 0.1 10^3/uL (0.0-0.1); BASOPHILS % (AUTO) 0 % (0-10); EOSINOPHILS # (AUTO) 0.1 10^3/uL (0.0-0.3); EOSINOPHILS % (AUTO) 0 % (0-10); HEMATOCRIT 33 % (35-52); HEMOGLOBIN 11.3 g/dL (11.5-16.0); LYMPHOCYTES % (AUTO) 5 % (12-44); MEAN CORPUSCULAR HEMOGLOBIN 28 pg (25-34); MEAN CORPUSCULAR HGB CONC 34 g/dL (32-36); MEAN CORPUSCULAR VOLUME 83 fL (80-99); MEAN PLATELET VOLUME 11.1 fL (9.0-12.2); MONOCYTES # (AUTO) 2.3 10^3/uL (0.0-1.0); MONOCYTES % (AUTO) 11 % (0-12); NEUTROPHILS # (AUTO) 16.3 10^3/uL (1.8-7.8); NEUTROPHILS % (AUTO) 82 % (42-75); PLATELET COUNT 162 10^3/uL (130-400); WHITE BLOOD COUNT 19.9 10^3/uL (4.3-11.0)
[2020-10-28 16:24] LABS: ALBUMIN 3.3 GM/DL (3.2-4.5); CHLORIDE 99 MMOL/L (98-107); POTASSIUM 3.9 MMOL/L (3.6-5.0); SODIUM 131 MMOL/L (135-145)
[2020-10-28 16:25] LABS: CALCIUM 9.3 MG/DL (8.5-10.1)
[2020-10-28 16:26] LABS: BAND NEUTROPHILS 2 %; BASOPHILS % (MANUAL) 0 %; EOSINOPHILS % (MANUAL) 0 %; GLUCOSE 118 MG/DL (70-105); LYMPHOCYTES % (MANUAL) 9 %; METAMYELOCYTES % 1 %; MONOCYTES % (MANUAL) 9 %; NEUTROPHILS % (MANUAL) 79 %; RBC MORPH NORMAL; TOTAL PROTEIN 7.1 GM/DL (6.4-8.2)
[2020-10-28 16:27] LABS: CARBON DIOXIDE 19 MMOL/L (21-32)
[2020-10-28 16:28] LABS: BILIRUBIN,TOTAL 0.4 MG/DL (0.1-1.0)
[2020-10-28 16:29] LABS: ALKALINE PHOSPHATASE 75 U/L (40-136)
[2020-10-28 16:30] LABS: CREATININE SERUM 0.68 MG/DL (0.60-1.30); GFR ESTIMATED > 60
[2020-10-28] MEDS ORDERED: cefTRIAXone FOR IV USE 1,000 MG in WATER (STERILE) FOR INJECTION 10 ML IV ONE (16:30)
[2020-10-28 16:31] LABS: BUN/CREATININE RATIO 6
[2020-10-28 16:33] LABS: ALANINE AMINOTRANSFERASE 16 U/L (0-55)
[2020-10-28] MEDS ORDERED: ONDANSETRON 4 MG/2 ML (SDV) Z0FRAN IVP PRN (17:15)
[2020-10-28] MEDS ORDERED: D5 LR IV SOLUTION 1,000 ML IV ONE (17:44)
[2020-10-28 17:45] VITALS: BP 114/65
[2020-10-28] MEDS ORDERED: ceFAZolin 2 GM IV Premixed 50 ML ONE (17:46)
[2020-10-28] MEDS: D5 LR IV SOLUTION 1,000 ML IV SCH (18:09)
[2020-10-28] MEDS: ceFAZolin 2 GM IV Premixed 50 ML IV SCH ×2 (18:09→23:50)
[2020-10-28] MEDS ORDERED: ONDANSETRON 4 MG/2 ML (SDV) Z0FRAN ONE (18:12)
[2020-10-28] MEDS ORDERED: oxyCODONE/APAP 5/325MG (PERCOCET 5) TABLET ONE (18:14)
[2020-10-28] MEDS ORDERED: CALC117719 PO (18:18)
[2020-10-28] MEDS ORDERED: ACET-2267 PO (18:18)
[2020-10-28] MEDS ORDERED: PNV11TAB5 PO (18:18)
[2020-10-28] MEDS: oxyCODONE/APAP 5/325MG (PERCOCET 5) TABLET PO PRN (18:29)
[2020-10-28 19:15] VITALS: BP 112/61
--- NOTE | 2020-10-28 20:43 | History & Physical ---
History and Physical Date Seen by Provider: October 28, 2020 Time Seen by Provider: 20:40 This patient is a 30-year-old 2 para 1 white female who was admitted through the emergency department with pyelonephritis. She reports a 2-day history of back pain. She denies urinary symptoms including frequency urgency or dysuria. She has never had hospitalization for a urinary tract infection in the past. She does feel baby moving. She denies contractions. She denies rupture membranes or bleeding. Patient complains of decreased appetite and of elevated temperature. Evaluation in the emergency department including lab work which was consistent with a pyelonephritis. Patient was started on antibiotic in the emergency department. I was consulted for admission and management from that point Allergies are none Medications are vitamins Medical social and surgical history is all per the antepartum record HEENT exam is normal Neck is supple no lymphadenopathy no thyromegaly Abdomen is gravid soft nontender nondistended Extremities show no clubbing or cyanosis. There is no Homans' sign. Back exam shows CVA tenderness on the right with no paraspinal rigidity Pelvic exam is deferred Lab work is as follows Laboratory Tests Test 10/28/20 15:37 10/28/20 15:55 Range/Units Urine Color YELLOW Urine Clarity SL CLOUDY Urine pH 7.5 5-9 Urine Specific [place] 1.010 L 1.016-1.022 Urine Protein 1+ H NEGATIVE Urine Glucose (UA) NEGATIVE NEGATIVE Urine Ketones 2+ H NEGATIVE Urine Nitrite POSITIVE H NEGATIVE Urine Bilirubin NEGATIVE NEGATIVE Urine Urobilinogen 0.2 < = 1.0 MG/DL Urine Leukocyte Esterase 3+ H NEGATIVE Urine RBC (Auto) 1+ H NEGATIVE Urine RBC 0-2 /HPF Urine WBC 50-100 H /HPF Urine Squamous Epithelial Cells 10-25 H /HPF Urine Crystals NONE /LPF Urine Bacteria LARGE H /HPF Urine Casts NONE /LPF Urine Mucus NEGATIVE /LPF Urine Culture Indicated CULTURE PENDING White Blood Count 19.9 H 4.3-11.0 10^3/uL Red Blood Count 4.03 3.80-5.11 10^6/uL Hemoglobin 11.3 L 11.5-16.0 g/dL Hematocrit 33 L 35-52 % Mean Corpuscular Volume 83 80-99 fL Mean Corpuscular Hemoglobin 28 25-34 pg Mean Corpuscular Hemoglobin Concent 34 32-36 g/dL Red Cell Distribution Width 13.9 10.0-14.5 % Platelet Count 162 130-400 10^3/uL Mean Platelet Volume 11.1 9.0-12.2 fL Immature Granulocyte % (Auto) 1 % Neutrophils (%) (Auto) 82 H 42-75 % Lymphocytes (%) (Auto) 5 L 12-44 % Monocytes (%) (Auto) 11 0-12 % Eosinophils (%) (Auto) 0 0-10 % Basophils (%) (Auto) 0 0-10 % Neutrophils # (Auto) 16.3 H 1.8-7.8 10^3/uL Lymphocytes # (Auto) 1.0 1.0-4.0 10^3/uL Monocytes # (Auto) 2.3 H 0.0-1.0 10^3/uL Eosinophils # (Auto) 0.1 0.0-0.3 10^3/uL Basophils # (Auto) 0.1 0.0-0.1 10^3/uL Immature Granulocyte # (Auto) 0.2 H 0.0-0.1 10^3/uL Neutrophils % (Manual) 79 % Lymphocytes % (Manual) 9 % Monocytes % (Manual) 9 % Eosinophils % (Manual) 0 % Basophils % (Manual) 0 % Metamyelocytes % 1 % Band Neutrophils 2 % Blood Morphology Comment NORMAL Sodium Level 131 L 135-145 MMOL/L Potassium Level 3.9 3.6-5.0 MMOL/L Chloride Level 99 98-107 MMOL/L Carbon Dioxide Level 19 L 21-32 MMOL/L Anion Gap 13 5-14 MMOL/L Blood Urea Nitrogen 4 L 7-18 MG/DL Creatinine 0.68 0.60-1.30 MG/DL Estimat Glomerular Filtration Rate > 60 BUN/Creatinine Ratio 6 Glucose Level 118 H 70-105 MG/DL Lactic Acid Level 1.96 0.50-2.00 MMOL/L Calcium Level 9.3 8.5-10.1 MG/DL Corrected Calcium 9.9 8.5-10.1 MG/DL Total Bilirubin 0.4 0.1-1.0 MG/DL Aspartate Amino Transf (AST/SGOT) 27 5-34 U/L Alanine Aminotransferase (ALT/SGPT) 16 0-55 U/L Alkaline Phosphatase 75 40-136 U/L Total Protein 7.1 6.4-8.2 GM/DL Albumin 3.3 3.2-4.5 GM/DL SARS-CoV-2 RNA (RT-PCR) Not Detected Not Detecte Vital signs are as follows Vital Signs Date Time Temp Pulse Resp B/P (MAP) Pulse Ox O2 Delivery O2 Flow Rate FiO2 10/28/20 19:15 36.0 109 16 112/61 (78) 97 Room Air 10/28/20 17:45 36.9 123 18 98 Room Air 10/28/20 17:45 36.9 123 18 114/65 (81) 98 Room Air 10/28/20 17:36 100 18 117/74 98 10/28/20 16:01 39.2 140 18 125/72 (89) 99 Assessment and plan 30-week with pyelonephritis. Urine cultures in process. Patient has been started on Rocephin no change sent to Ancef 2 g every 6 hours and we will follow up urine culture. Plan would be for 48 hours of decreasing white count afebrile and confirmation of a urine culture with appropriate antibiotics for the offending organism 30-week with pyelonephritis Allergies and Home Medications Allergies Coded Allergies: No Known Drug Allergies (Unverified , 12/30/19) Home Medications Acetaminophen 500 Mg Tablet, 1,000 MG PO Q8H, (Reported) Last Action: New Order Calcium Carbonate 470 Mg Tab.chew, 1,000 MG PO Q8H, (Reported) Last Action: New Order Zid484/FA/Omega3/Dha/Fish Oil 1 Each Tab.chew, 2 EACH PO DAILY, (Reported) Last Action: New Order Patient Home Medication List Home Medication List Reviewed: Yes JOHN PAUL GILMAN MD October 28, 2020 20:43
[2020-10-28 23:55] VITALS: BP 103/63
[2020-10-29] MEDS: D5 LR IV SOLUTION 1,000 ML IV SCH ×4 (01:43→23:55)
[2020-10-29] MEDS: oxyCODONE/APAP 5/325MG (PERCOCET 5) TABLET PO PRN ×4 (01:43→23:55)
[2020-10-29 05:30] VITALS: BP 107/55
[2020-10-29 05:30] LABS: EOSINOPHILS % (AUTO) 0 % (0-10); HEMOGLOBIN 8.9 g/dL (11.5-16.0)
[2020-10-29 05:32] LABS: BASOPHILS % (AUTO) 0 % (0-10); HEMATOCRIT 27 % (35-52); LYMPHOCYTES # (AUTO) 1.1 10^3/uL (1.0-4.0); LYMPHOCYTES % (AUTO) 8 % (12-44); MEAN CORPUSCULAR HEMOGLOBIN 28 pg (25-34); MEAN CORPUSCULAR HGB CONC 34 g/dL (32-36); MEAN CORPUSCULAR VOLUME 83 fL (80-99); MEAN PLATELET VOLUME 10.7 fL (9.0-12.2); MONOCYTES % (AUTO) 14 % (0-12); NEUTROPHILS # (AUTO) 10.7 10^3/uL (1.8-7.8); NEUTROPHILS % (AUTO) 77 % (42-75); PLATELET COUNT 135 10^3/uL (130-400)
[2020-10-29] MEDS: ceFAZolin 2 GM IV Premixed 50 ML IV SCH ×3 (05:36→18:32)
[2020-10-29 05:50] VITALS: BP 107/55
[2020-10-29 09:21] VITALS: BP 99/56
--- NOTE | 2020-10-29 09:51 | Progress Note ---
Standard Progress Note Progress Notes/Assess & Plan Date Seen by a Provider: October 29, 2020 Time Seen by a Provider: 07:42 Progress/Assessment & Plan This patient is without complaint. She does report that the right flank pain persists although it does seem better. Her nausea has improved. She denies rupture membranes or bleeding. She has no contractions. She does feel baby moving. Vital Signs Date Time Temp Pulse Resp B/P (MAP) Pulse Ox O2 Delivery O2 Flow Rate FiO2 10/29/20 09:21 36.7 115 16 99/56 (70) 97 Room Air 10/29/20 05:50 115 16 107/55 10/29/20 05:30 36.7 115 16 107/55 (72) Room Air 10/28/20 23:55 35.6 107 16 103/63 (76) 97 Room Air 10/28/20 19:15 36.0 109 16 112/61 (78) 97 Room Air 10/28/20 17:45 36.9 123 18 98 Room Air 10/28/20 17:45 36.9 123 18 114/65 (81) 98 Room Air 10/28/20 17:36 100 18 117/74 98 10/28/20 16:01 39.2 140 18 125/72 (89) 99 I & O 10/29/20 07:00 Intake Total 2009 ml Balance 2009 ml Vital signs are stable. Patient is afebrile. Laboratory Tests Test 10/28/20 15:37 10/28/20 15:55 10/29/20 05:22 Range/Units Urine Color YELLOW Urine Clarity SL CLOUDY Urine pH 7.5 5-9 Urine Specific [place] 1.010 L 1.016-1.022 Urine Protein 1+ H NEGATIVE Urine Glucose (UA) NEGATIVE NEGATIVE Urine Ketones 2+ H NEGATIVE Urine Nitrite POSITIVE H NEGATIVE Urine Bilirubin NEGATIVE NEGATIVE Urine Urobilinogen 0.2 < = 1.0 MG/DL Urine Leukocyte Esterase 3+ H NEGATIVE Urine RBC (Auto) 1+ H NEGATIVE Urine RBC 0-2 /HPF Urine WBC 50-100 H /HPF Urine Squamous Epithelial Cells 10-25 H /HPF Urine Crystals NONE /LPF Urine Bacteria LARGE H /HPF Urine Casts NONE /LPF Urine Mucus NEGATIVE /LPF Urine Culture Indicated CULTURE PENDING White Blood Count 19.9 H 14.0 H 4.3-11.0 10^3/uL Red Blood Count 4.03 3.19 L 3.80-5.11 10^6/uL Hemoglobin 11.3 L 8.9 #L 11.5-16.0 g/dL Hematocrit 33 L 27 L 35-52 % Mean Corpuscular Volume 83 83 80-99 fL Mean Corpuscular Hemoglobin 28 28 25-34 pg Mean Corpuscular Hemoglobin Concent 34 34 32-36 g/dL Red Cell Distribution Width 13.9 13.9 10.0-14.5 % Platelet Count 162 135 130-400 10^3/uL Mean Platelet Volume 11.1 10.7 9.0-12.2 fL Immature Granulocyte % (Auto) 1 1 % Neutrophils (%) (Auto) 82 H 77 H 42-75 % Lymphocytes (%) (Auto) 5 L 8 L 12-44 % Monocytes (%) (Auto) 11 14 H 0-12 % Eosinophils (%) (Auto) 0 0 0-10 % Basophils (%) (Auto) 0 0 0-10 % Neutrophils # (Auto) 16.3 H 10.7 H 1.8-7.8 10^3/uL Lymphocytes # (Auto) 1.0 1.1 1.0-4.0 10^3/uL Monocytes # (Auto) 2.3 H 2.0 H 0.0-1.0 10^3/uL Eosinophils # (Auto) 0.1 0.0 0.0-0.3 10^3/uL Basophils # (Auto) 0.1 0.0 0.0-0.1 10^3/uL Immature Granulocyte # (Auto) 0.2 H 0.2 H 0.0-0.1 10^3/uL Neutrophils % (Manual) 79 % Lymphocytes % (Manual) 9 % Monocytes % (Manual) 9 % Eosinophils % (Manual) 0 % Basophils % (Manual) 0 % Metamyelocytes % 1 % Band Neutrophils 2 % Blood Morphology Comment NORMAL Sodium Level 131 L 135-145 MMOL/L Potassium Level 3.9 3.6-5.0 MMOL/L Chloride Level 99 98-107 MMOL/L Carbon Dioxide Level 19 L 21-32 MMOL/L Anion Gap 13 5-14 MMOL/L Blood Urea Nitrogen 4 L 7-18 MG/DL Creatinine 0.68 0.60-1.30 MG/DL Estimat Glomerular Filtration Rate > 60 BUN/Creatinine Ratio 6 Glucose Level 118 H 70-105 MG/DL Lactic Acid Level 1.96 0.50-2.00 MMOL/L Calcium Level 9.3 8.5-10.1 MG/DL Corrected Calcium 9.9 8.5-10.1 MG/DL Total Bilirubin 0.4 0.1-1.0 MG/DL Aspartate Amino Transf (AST/SGOT) 27 5-34 U/L Alanine Aminotransferase (ALT/SGPT) 16 0-55 U/L Alkaline Phosphatase 75 40-136 U/L Total Protein 7.1 6.4-8.2 GM/DL Albumin 3.3 3.2-4.5 GM/DL SARS-CoV-2 RNA (RT-PCR) Not Detected Not Detecte Percent Immature Platelet Fraction 4.1 0.0-7.6 % Blood cell count has decreased appreciably The abdomen is benign. The uterus is nontender. Extremities show no clubbing cyanosis. There is no Homans' sign. Pelvic exam is deferred Assessment and plan hospital day #2 in a patient at 30 weeks gestation with pyelonephritis. Culture is pending. We will continue her Ancef for empiric coverage until we receive the culture sensitivity result. Plan will be continue the IV antibiotics today and tonight and reevaluate management plan tomorrow Final Diagnosis Pyelonephritis at 30 weeks gestation Focused Exam Lactate Level 10/28/20 15:55: Lactic Acid Level 1.96 JOHN PAUL GILMAN MD October 29, 2020 09:51
[2020-10-29 15:00] VITALS: BP 99/55
[2020-10-29 20:31] VITALS: BP 99/63
[2020-10-30] MEDS: ceFAZolin 2 GM IV Premixed 50 ML IV SCH ×2 (00:14→05:59)
[2020-10-30 02:54] VITALS: BP 96/54
[2020-10-30] MEDS: D5 LR IV SOLUTION 1,000 ML IV SCH (07:37)
[2020-10-30] MEDS ORDERED: CEPH500T PO (07:47)
--- NOTE | 2020-10-30 07:48 | Discharge Inst-Surgical ---
Discharge Inst-Surgical Depart Medication/Instructions New, Converted or Re-Newed RX: RX on Chart Consults/Follow Up Patient Instructions: As directed Orders & Referrals Return to clinic on Thursday as scheduled Return to clinic for any recurrence of symptoms or signs symptoms or indications of labor Take Keflex 500 mg 4 times a day as prescribed Activity Activity as Tolerated: Yes Diet Discharge Diet: No Restrictions JOHN PAUL GILMAN MD October 30, 2020 07:48
--- NOTE | 2020-10-30 07:50 | Progress Note ---
Standard Progress Note Progress Notes/Assess & Plan Date Seen by a Provider: October 30, 2020 Time Seen by a Provider: 07:48 Progress/Assessment & Plan This patient is without complaint. She does report that the right flank pain persists although it does seem better. Her nausea has improved. She denies rupture membranes or bleeding. She has no contractions. She does feel baby moving. Vital Signs Date Time Temp Pulse Resp B/P (MAP) Pulse Ox O2 Delivery O2 Flow Rate FiO2 10/29/20 09:21 36.7 115 16 99/56 (70) 97 Room Air 10/29/20 05:50 115 16 107/55 10/29/20 05:30 36.7 115 16 107/55 (72) Room Air 10/28/20 23:55 35.6 107 16 103/63 (76) 97 Room Air 10/28/20 19:15 36.0 109 16 112/61 (78) 97 Room Air 10/28/20 17:45 36.9 123 18 98 Room Air 10/28/20 17:45 36.9 123 18 114/65 (81) 98 Room Air 10/28/20 17:36 100 18 117/74 98 10/28/20 16:01 39.2 140 18 125/72 (89) 99 I & O 10/29/20 07:00 Intake Total 2009 ml Balance 2009 ml Vital signs are stable. Patient is afebrile. Laboratory Tests Test 10/28/20 15:37 10/28/20 15:55 10/29/20 05:22 Range/Units Urine Color YELLOW Urine Clarity SL CLOUDY Urine pH 7.5 5-9 Urine Specific [place] 1.010 L 1.016-1.022 Urine Protein 1+ H NEGATIVE Urine Glucose (UA) NEGATIVE NEGATIVE Urine Ketones 2+ H NEGATIVE Urine Nitrite POSITIVE H NEGATIVE Urine Bilirubin NEGATIVE NEGATIVE Urine Urobilinogen 0.2 < = 1.0 MG/DL Urine Leukocyte Esterase 3+ H NEGATIVE Urine RBC (Auto) 1+ H NEGATIVE Urine RBC 0-2 /HPF Urine WBC 50-100 H /HPF Urine Squamous Epithelial Cells 10-25 H /HPF Urine Crystals NONE /LPF Urine Bacteria LARGE H /HPF Urine Casts NONE /LPF Urine Mucus NEGATIVE /LPF Urine Culture Indicated CULTURE PENDING White Blood Count 19.9 H 14.0 H 4.3-11.0 10^3/uL Red Blood Count 4.03 3.19 L 3.80-5.11 10^6/uL Hemoglobin 11.3 L 8.9 #L 11.5-16.0 g/dL Hematocrit 33 L 27 L 35-52 % Mean Corpuscular Volume 83 83 80-99 fL Mean Corpuscular Hemoglobin 28 28 25-34 pg Mean Corpuscular Hemoglobin Concent 34 34 32-36 g/dL Red Cell Distribution Width 13.9 13.9 10.0-14.5 % Platelet Count 162 135 130-400 10^3/uL Mean Platelet Volume 11.1 10.7 9.0-12.2 fL Immature Granulocyte % (Auto) 1 1 % Neutrophils (%) (Auto) 82 H 77 H 42-75 % Lymphocytes (%) (Auto) 5 L 8 L 12-44 % Monocytes (%) (Auto) 11 14 H 0-12 % Eosinophils (%) (Auto) 0 0 0-10 % Basophils (%) (Auto) 0 0 0-10 % Neutrophils # (Auto) 16.3 H 10.7 H 1.8-7.8 10^3/uL Lymphocytes # (Auto) 1.0 1.1 1.0-4.0 10^3/uL Monocytes # (Auto) 2.3 H 2.0 H 0.0-1.0 10^3/uL Eosinophils # (Auto) 0.1 0.0 0.0-0.3 10^3/uL Basophils # (Auto) 0.1 0.0 0.0-0.1 10^3/uL Immature Granulocyte # (Auto) 0.2 H 0.2 H 0.0-0.1 10^3/uL Neutrophils % (Manual) 79 % Lymphocytes % (Manual) 9 % Monocytes % (Manual) 9 % Eosinophils % (Manual) 0 % Basophils % (Manual) 0 % Metamyelocytes % 1 % Band Neutrophils 2 % Blood Morphology Comment NORMAL Sodium Level 131 L 135-145 MMOL/L Potassium Level 3.9 3.6-5.0 MMOL/L Chloride Level 99 98-107 MMOL/L Carbon Dioxide Level 19 L 21-32 MMOL/L Anion Gap 13 5-14 MMOL/L Blood Urea Nitrogen 4 L 7-18 MG/DL Creatinine 0.68 0.60-1.30 MG/DL Estimat Glomerular Filtration Rate > 60 BUN/Creatinine Ratio 6 Glucose Level 118 H 70-105 MG/DL Lactic Acid Level 1.96 0.50-2.00 MMOL/L Calcium Level 9.3 8.5-10.1 MG/DL Corrected Calcium 9.9 8.5-10.1 MG/DL Total Bilirubin 0.4 0.1-1.0 MG/DL Aspartate Amino Transf (AST/SGOT) 27 5-34 U/L Alanine Aminotransferase (ALT/SGPT) 16 0-55 U/L Alkaline Phosphatase 75 40-136 U/L Total Protein 7.1 6.4-8.2 GM/DL Albumin 3.3 3.2-4.5 GM/DL SARS-CoV-2 RNA (RT-PCR) Not Detected Not Detecte Percent Immature Platelet Fraction 4.1 0.0-7.6 % Blood cell count has decreased appreciably The abdomen is benign. The uterus is nontender. Extremities show no clubbing cyanosis. There is no Homans' sign. Pelvic exam is deferred Assessment and plan hospital day #2 in a patient at 30 weeks gestation with pyelonephritis. Culture is pending. We will continue her Ancef for empiric coverage until we receive the culture sensitivity result. Plan will be continue the IV antibiotics today and tonight and reevaluate management plan tomorrow October 30, 2020 Patient is without complaint. She reports that her back pain is markedly better. She denies contractions, denies rupture membranes, denies bleeding. She is requesting discharge home. Vital Signs Date Time Temp Pulse Resp B/P (MAP) Pulse Ox O2 Delivery O2 Flow Rate FiO2 10/30/20 02:54 35.7 102 18 96/54 (68) 98 Room Air 10/29/20 20:31 36.2 108 18 99/63 (75) 97 Room Air 10/29/20 15:00 36.9 113 18 99/55 (70) Room Air 10/29/20 09:21 36.7 115 16 99/56 (70) 97 Room Air I & O 10/30/20 07:00 Intake Total 1100 ml Balance 1100 ml Vital signs are stable. Patient is afebrile. Culture shows growth of E. coli sensitivities are still pending The abdomen is gravid soft nontender nondistended Extremities show no clubbing or cyanosis. There is no Homans' sign. Pelvic exam is deferred Assessment and plan hospital day 3 at 30+ weeks gestation with pyelonephritis. Patient has responded well to Ancef we will change now to Ke flex and allow discharge home with follow-up in clinic Final Diagnosis 30 weeks gestation with pyelonephritis Focused Exam Lactate Level 10/28/20 15:55: Lactic Acid Level 1.96 JOHN PAUL GILMAN MD October 30, 2020 07:50
[2020-10-30 08:15] VITALS: BP 101/55
[2020-10-30] MEDS ORDERED: CEPHALEXIN 250 MG (KEFLEX) CAP PO SCH (09:00)
[2020-10-30 09:14] VITALS: BP 101/55
[2020-10-30 09:45] VITALS: BP 101/55
== END 2020-10-30 09:45 | disposition home or self-care (01) ==
LOC: EDUNIT# 15:07 → ER 15:09 → LDRP 16:48
PROVIDERS: ADMIT Obstetrics & Gynecology; ATTEND Obstetrics & Gynecology
DX: O23.03 Infections of kidney in pregnancy, third trimester (principal); R50.9 Fever, unspecified; Z79.899 Other long term (current) drug therapy; Z20.822 Contact with and (suspected) exposure to COVID-19
CPT/HCPCS: 36415; 80053; 81000; 83605; 85007; 85025; 85027; 87040; 87077; 87088; 87186; 87636; 96361; 96374; 96375; 96376; G0378

== ENCOUNTER 2021-01-01 06:58 | Inpatient (IN) | payer MEDICAID ==
[2021-01-01] VITALS (50 sets, daily range): BP systolic 113–139; BP diastolic 58–91
[~2021-01-01] VITALS: Ht 157.5 cm; Wt 76.7 kg
[~2021-01-01 06:58] MED LIST changes: +ACET-2267 PO; +CALC117719 PO; +CEPH500T PO; +PNV11TAB5 PO
[2021-01-01] MEDS ORDERED: MINERAL OIL CONCENTRATE 99.9% 15 ML UDC TOP PRN (07:15)
[2021-01-01] MEDS: D5 LR IV SOLUTION 1,000 ML IV SCH ×2 (07:34→13:52)
[2021-01-01 07:45] LABS: BASOPHILS % (AUTO) 0 % (0-10); EOSINOPHILS # (AUTO) 0.1 10^3/uL (0.0-0.3); EOSINOPHILS % (AUTO) 1 % (0-10); HEMATOCRIT 31 % (35-52); HEMOGLOBIN 10.1 g/dL (11.5-16.0); LYMPHOCYTES # (AUTO) 2.3 10^3/uL (1.0-4.0); LYMPHOCYTES % (AUTO) 19 % (12-44); MEAN CORPUSCULAR HEMOGLOBIN 26 pg (25-34); MEAN CORPUSCULAR HGB CONC 32 g/dL (32-36); MEAN CORPUSCULAR VOLUME 79 fL (80-99); MONOCYTES % (AUTO) 8 % (0-12); NEUTROPHILS # (AUTO) 8.1 10^3/uL (1.8-7.8); NEUTROPHILS % (AUTO) 69 % (42-75); PLATELET COUNT 216 10^3/uL (130-400); WHITE BLOOD COUNT 11.6 10^3/uL (4.3-11.0)
[2021-01-01] MEDS ORDERED: OXYTOCIN PRE-MIX DRIP 500 ML IV ONE (07:50)
[2021-01-01] MEDS ORDERED: OXYTOCIN PRE-MIX DRIP 500 ML IV SCH ×2 (08:00→15:15)
[2021-01-01 08:03] LABS: BILIRUBIN,URINE NEGATIVE (NEGATIVE); CLARITY,URINE CLEAR; COLOR,URINE YELLOW; GLUCOSE, URINE (UA) NEGATIVE (NEGATIVE); KETONES,URINE NEGATIVE (NEGATIVE); LEUKOCYTE ESTERASE ,URINE 1+ (NEGATIVE); NITRITE,URINE NEGATIVE (NEGATIVE); PROTEIN,URINE NEGATIVE (NEGATIVE)
[2021-01-01 08:11] LABS: BACTERIA,URINE MODERATE /HPF; RBC,URINE 0-2 /HPF
[2021-01-01] MEDS ORDERED: fentaNYL 2 mcg/ml BUPIVA 0.125 100 ML ONE (09:36)
[2021-01-01] MEDS ORDERED: LACTATED RINGERS 1,000 ML IV ONE ×3 (09:36→11:00)
[2021-01-01] MEDS ORDERED: BUPIVACAINE 0.25% 30 ML (SENSORCAINE) VIAL ONE (10:17)
[2021-01-01] MEDS ORDERED: fentaNYL INJ 100 MCG/2 ML AMP ONE (10:17)
[2021-01-01] MEDS ORDERED: fentaNYL 2 mcg/ml BUPIVA 0.125 100 ML EPI PRN (11:00)
[2021-01-01] MEDS ORDERED: EPIDURAL (fentaNYL 2 MCG/ML BUPIVA 0.125%)100 ML BAG EPI PRN (11:00)
[2021-01-01] MEDS ORDERED: NALOXONE 0.4 MG/ML 1 ML (NARCAN) VIAL IV PRN (11:00)
[2021-01-01] MEDS ORDERED: fentaNYL INJ 100 MCG/2 ML AMP INJ ONE (11:00)
[2021-01-01] MEDS ORDERED: ONDANSETRON 4 MG/2 ML (SDV) Z0FRAN IV PRN (11:00)
[2021-01-01] MEDS ORDERED: LIDOCAINE/EPI 2% 1:200,00 (XYLOCAINE) 20 ML VIAL ONE (12:54)
[2021-01-01] MEDS ORDERED: CATHETER FLUSH 10 ML SYR IV SCH (14:00)
[2021-01-01] MEDS ORDERED: OXYC1TAB87 PO (14:01)
[2021-01-01] MEDS ORDERED: DOCU-143 PO (14:01)
[2021-01-01] MEDS ORDERED: IBUP-1780 PO (14:01)
--- NOTE | 2021-01-01 14:02 | Discharge Inst-Surgical ---
Discharge Inst-Surgical Depart Medication/Instructions New, Converted or Re-Newed RX: Transmitted to Pharmacy Consults/Follow Up Patient Instructions: As directed Orders & Referrals Follow Up Appt: Call to make follow up appt. for patient in 4 weeks. Activity Per routine post vaginal delivery instructions. Diet as tolerated Patient may shower or tub bathe as desired. Activity Activity as Tolerated: No Diet Discharge Diet: No Restrictions JOHN PAUL GILMAN MD Jan 01, 2021 14:02
[2021-01-01] MEDS ORDERED: BENZOCAINE/MENTHOL (DERMOPLAST) 56 ML CAN TP PRN (15:15)
[2021-01-01] MEDS ORDERED: MEASLES,MUMPS,RUBELLA 1 EA INJ SC ONE (15:15)
[2021-01-01] MEDS ORDERED: ONDANSETRON 4 MG/2 ML (SDV) Z0FRAN IVP PRN (15:15)
[2021-01-01] MEDS ORDERED: oxyCODONE/APAP 5/325MG (PERCOCET 5) TABLET PO PRN (15:15)
[2021-01-01] MEDS ORDERED: TETANUS,DIPTH,PERTUSS P/F (BOOSTRIX) 0.5 ML VIAL IM ONE (15:15)
[2021-01-01] MEDS ORDERED: IBUPROFEN 800 MG (MOTRIN) TAB PO SCH (18:00)
[2021-01-01] MEDS: KETOROLAC 30 MG/ML VIAL IVP SCH (18:18)
--- NOTE | 2021-01-01 21:52 | OPERATIVE REPORT ---
DATE OF SERVICE: 01/01/2021 DELIVERY NOTE The patient delivered by term spontaneous vaginal delivery a viable female infant with Apgars of 8 and 9 at 1 and 5 minutes respectively, weight of 6 pounds 9 ounce, time of 1411 and a cord blood pH is pending. The infant had a relatively tight nuchal cord that was released with some difficulty and then the delivery completed. The was bulb suctioned on delivery of the head and again on completion of delivery. The umbilical cord was doubly clamped, father cut the cord, the baby was passed to mom's abdomen. The placenta delivered spontaneously Parada after obtaining cord bloods. The cervix, vagina, rectum, and perineum were examined and found intact, except for the bilateral periurethral and inner labia minora tears more significant on the left than on the right. Both of these lacerations were repaired with a single suture of 3-0 Vicryl Rapide in a running locking manner to reapproximate the tissue and affect hemostasis. There were a couple of superficial abrasions in the posterior fourchette that did not require repair. Sponge and needle counts were correct on completion of delivery and repair. Blood loss was around 200 mL. The patient tolerated the delivery and the repairs well and recovered in the LDR. The baby remained with mom. Job ID: [id number] DocumentID: [id number] Dictated Date: 01/01/2021 17:04:56 Road Builder Date: 01/01/2021 21:52:03 Dictated By: JOHN PAUL GILMAN MD
[2021-01-02 00:30] VITALS: BP 119/70
[2021-01-02] MEDS: DOCUSATE SODIUM 100 MG (COLACE) CAP PO SCH ×2 (00:36→10:15)
[2021-01-02] MEDS: KETOROLAC 30 MG/ML VIAL IVP SCH (00:36)
--- NOTE | 2021-01-02 08:07 | Progress Note ---
Standard Progress Note Progress Notes/Assess & Plan Date Seen by a Provider: Jan 02, 2021 Time Seen by a Provider: 08:06 Progress/Assessment & Plan This patient is without complaint. She is ambulating, voiding, tolerating oral intake well and has good pain control. Vital Signs 01/02/21 00:30 Temp 36.8 Pulse 82 Resp 18 B/P (MAP) 119/70 (86) Pulse Ox 97 O2 Delivery Room Air Vital signs are stable. Patient is afebrile. Fundus is firm below the umbilicus and nontender. Extremities show no clubbing or cyanosis. There is no Homans' sign. Assessment and plan day #1 status post term spontaneous vaginal labor at 39 weeks gest ation. Patient will have routine convalescent care today and discharge home as needed her request Final Diagnosis 39-week spontaneous vaginal delivery JOHN PAUL GILMAN MD Jan 02, 2021 08:07
--- NOTE | 2021-01-02 08:09 | History & Physical ---
History and Physical Date Seen by Provider: Jan 01, 2021 Time Seen by Provider: 08:00 This patient is a 30-year-old gravid female currently at 39 weeks gestation. She is admitted for labor induction. Her GBS culture was negative. She has had no problems with this to date. Allergies are none Medications are vitamins Medical social and surgical history is are per the antepartum record HEENT exam is normal Neck is supple no lymphadenopathy no thyromegaly Abdomen is gravid soft nontender nondistended Extremities show no clubbing or cyanosis. No Homans' sign. Pelvic exam was pending at the time of admission Assessment and plan 39-week gestation admitted for elective induction of labor. We anticipate a vaginal delivery 39 weeks gestation admitted for induction of labor Allergies and Home Medications Allergies Coded Allergies: No Known Drug Allergies (Unverified , 12/30/19) Home Medications Calcium Carbonate 470 Mg Tab.chew, 1,000 MG PO Q8H, (Reported) Last Action: Reviewed Docusate Sodium 100 Mg Capsule, 100 MG PO BID Prescribed by: JOHN PAUL ALVARADO on 01/01/21 1401 Ibuprofen 800 Mg Tablet, 800 MG PO Q6H PRN for PAIN Prescribed by: JOHN PAUL ALVARADO on 01/01/21 1401 Oxycodone HCl/Acetaminophen 1 Each Tablet, 1 TAB PO Q4H Prescribed by: JOHN PAUL ALVARADO on 01/01/21 1401 Eao739/FA/Omega3/Dha/Fish Oil 1 Each Tab.chew, 2 EACH PO DAILY, (Reported) Last Action: Reviewed Patient Home Medication List Home Medication List Reviewed: Yes JOHN PAUL GILMAN MD Jan 02, 2021 08:09
[2021-01-02 09:00] VITALS: BP 106/64
--- NOTE | 2021-01-02 09:34 | Anesthesia-Regional Post-Op ---
Regional Patient Condition Mental Status: Alert, Oriented x3 Circulation: Same as Pre-Op Headache: Absent Sensation: Full Recovery Motor Block: Absent Post Op Complications Complications None Follow Up Care/Instructions Patient Instructions None needed. Anesthesia/Patient Condition Patient is doing well, no complaints, stable vital signs, no apparent adverse anesthesia problems. No complications reported per nursing. CARLI COLBY CRNA Jan 02, 2021 09:34
[2021-01-02] MEDS: IBUPROFEN 800 MG (MOTRIN) TAB PO SCH ×3 (10:15→16:16)
[2021-01-02] MEDS ORDERED: WITCH HAZEL(TUCKS) 40 EA JAR TOP PRN (10:30)
[2021-01-02 12:25] VITALS: BP 125/76
[2021-01-02 16:15] VITALS: BP 129/77
[2021-01-02 16:55] VITALS: BP 129/77
== END 2021-01-02 16:55 | disposition home or self-care (01) | DRG 807 ==
LOC: LDRP 06:58
PROVIDERS: ADMIT Obstetrics & Gynecology; ATTEND Obstetrics & Gynecology
PROC: 10E0XZZ Delivery of Products of Conception, External Approach (ICD-10-PCS; principal; 2021-01-01)
PROC: 0HQ9XZZ Repair Perineum Skin, External Approach (ICD-10-PCS; 2021-01-01)
PROC: 0UQMXZZ Repair Vulva, External Approach (ICD-10-PCS; 2021-01-01)
PROC: 3E033VJ Introduction of Other Hormone into Peripheral Vein, Percutaneous Approach (ICD-10-PCS; 2021-01-01)
DX: O69.1XX0 Labor and delivery complicated by cord around neck, with compression, not applicable or unspecified (principal); Z37.0 Single live birth; Z3A.39 39 weeks gestation of pregnancy; O70.0 First degree perineal laceration during delivery; O71.82 Other specified trauma to perineum and vulva
CPT/HCPCS: 36415; 81000; 85025; 86850; 86900; 86901; 87088; 88307

== ENCOUNTER 2022-08-13 08:43 | Inpatient (IN) | payer MEDICAID ==
[2022-08-13] VITALS (35 sets, daily range): BP systolic 121–166; BP diastolic 66–96
[~2022-08-13] VITALS: Ht 157 cm; Wt 81.5 kg
[~2022-08-13 08:43] MED LIST changes: +DOCU-143 PO; +OXYC1TAB87 PO
[2022-08-13] MEDS ORDERED: AMPICILLIN FOR IV USE 2,000 MG in NS (IVPB) 50 ML IV SCH (09:56)
[2022-08-13] MEDS ORDERED: LIDOCAINE 1% INJ 20 ML VIAL IJ PRN (10:00)
[2022-08-13] MEDS ORDERED: D5 LR IV SOLUTION 1,000 ML IV SCH (10:00)
--- NOTE | 2022-08-13 10:03 | History & Physical-OB/GYN ---
BILLY NESS 08/13/22 1003: OB - Chief Complaint & HPI Date/Time Date of Admission: Date of Admission: Date seen by a Provider: Aug 13, 2022 Time Seen by a Provider: 10:05 Chief Complaint/History OB-Reason for Admission/Chief: Onset of Labor Hx : 4 Hx Para: 2 Expected Date of Delivery: Aug 21, 2022 Gestational Age in Weeks: 38 Gestational Age in Days: 6 History of Labs A+ Antibody Neg VDRL NR HIV NR HBsAg NR G/C Neg Rubella Not Immune GBS Pos Allergies and Home Medications Allergies Coded Allergies: No Known Drug Allergies (Unverified , 12/30/19) Patient Home Medication List Home Medication List Reviewed: Yes Oxycodone HCl/Acetaminophen (Percocet 5-325 mg Tablet) 1 Each Tablet, 1 TAB PO Q4H Prescribed by: JOHN PAUL ALVARADO on 01/01/211400 Last Action: Last Taken Edited Ajj265/FA/Omega3/Dha/Fish Oil ( Gummies) 1 Each Tab.chew, 2 EACH PO DAILY, (Reported) Entered as Reported by: CAM CORTEZ on 10/28/201817 Last Action: Last Taken Edited Discontinued Medications Calcium Carbonate (Tums Ultra Strength) 470 Mg Tab.chew, 1,000 MG PO Q8H, (Reported) Discontinued Reason: No Longer Taking Entered as Reported by: CAM CORTEZ on 10/28/201817 Last Action: Discontinued Docusate Sodium (Colace) 100 Mg Capsule, 100 MG PO BID Discontinued Reason: No Longer Taking Prescribed by: JOHN PAUL ALVARADO on 01/01/211400 Last Action: Discontinued Ibuprofen (Ibuprofen) 800 Mg Tablet, 800 MG PO Q6H PRN for PAIN Discontinued Reason: No Longer Taking Prescribed by: JOHN PALU ALVARADO on 01/01/211400 Last Action: Discontinued OB - History Hx of Present Care: Yes Ultrasounds: Normal mid trimester US Obstetrical Complications: None Medical Complications: None Information Pre-Hospital Medication Admins: None Induced Hypertension: No Maternal Gestational Diabetes: No Hemorrhage: No Obstetrical History Hx : 4 Hx Para: 2 Hx # Term Pregnancies: 2 Hx # Pregnancies: 0 Number of Living Children: 2 Hx Termination: No Hx Total # of Abortions (Spona: 1 Hx Induced Hypertens: No Hx Maternal Gestational Diabet: No Hx Hemorrhage: No Delivery History Hx Dystocia: No Hx Forceps Assisted Delivery: No Hx Vacuum Extraction Assisted: No Hx Placenta Abnormality: No Hx Distress: No Hx Large For Gestational Age I: No Hx Small for Gestational Age I: No Hx Section: No Hx Vaginal Delivery Post C-Sec: No Hx Blood Disorders: No Adverse Rxn to Tranfusion: No Patient Past Medical History NC Social History/Family History Alcohol Use: Denies Use Recreational Drug Use: No Smoking Cessation: Never smoker 2nd Hand Smoke Exposure: No Immunizations Rubella: not immune RPR/VDRL: Negative GBS Status: Negative HBsAG: Negative OB - Admission Exam Physical Exam HEENT: PERRLA Heart: Rhythm Normal Lungs: Clear Abdomen: Gravid Extremities: Edema Reflexes: Normal Cervical Dilatation: 3cm Effacement: 75% Station: -3 Heart Rate: 140's Accelerations: Accelerations Present Decelerations: No Decelerations Short Term Variability: Present Registered Dietetic Technician Variability: Average (6-25) Contractions on Admission: < 5 Minutes Apart OB - Assessment/Plan/Diagnosis Assessment Assessment: active labor Admission Dx at 38 weeks 6 days gestational age Presents in active labor GBS Positive Rubella Not Immune Otherwise uncomplicated Admission Status: Inpatient Order (span 2 midnights) Reason for Inpatient Admission: at 38 weeks 6 days gestation in active labor Plan Plan: Expectant Management ELDON SIN DO 08/13/22 1141: Allergies and Home Medications Allergies Coded Allergies: No Known Drug Allergies (Unverified , 12/30/19) Patient Home Medication List Oxycodone HCl/Acetaminophen (Percocet 5-325 mg Tablet) 1 Each Tablet, 1 TAB PO Q4H Prescribed by: JOHN PAUL ALVARADO on 01/01/21 1401 Last Action: Last Taken Edited Odr335/FA/Omega3/Dha/Fish Oil ( Gummies) 1 Each Tab.chew, 2 EACH PO DAILY, (Reported) Entered as Reported by: CAM CORTEZ on 10/28/20 1818 Last Action: Last Taken Edited Discontinued Medications Calcium Carbonate (Tums Ultra Strength) 470 Mg Tab.chew, 1,000 MG PO Q8H, (Reported) Discontinued Reason: No Longer Taking Entered as Reported by: CAM CORTEZ on 10/28/201817 Last Action: Discontinued Docusate Sodium (Colace) 100 Mg Capsule, 100 MG PO BID Discontinued Reason: No Longer Taking Prescribed by: JOHN PAUL ALVARADO on 01/01/21 1401 Last Action: Discontinued Ibuprofen (Ibuprofen) 800 Mg Tablet, 800 MG PO Q6H PRN for PAIN Discontinued Reason: No Longer Taking Prescribed by: JOHN PAUL ALVARADO on 01/01/21 1401 Last Action: Discontinued OB - Admission Exam Patterson Scoring Tool (Modified) Dilation (cm): 3-4cm (2) Effacement (%): 51-79% (2) Descent/Station: -1,0 (2) Cervix Consistency: Soft (2) Cervix Position: Anterior (2) Supervisory-Addendum Brief Verification & Attestation Participated in pt care: history Personally performed: exam Care discussed with: Medical Student Procedures: n/a Results interpretation: Verified all documentation Verification and Attestation of Medical Student E/M Service A medical student performed and documented this service in my presence. I reviewed and verified all information documented by the medical student and made modifications to such information, when appropriate. I personally performed the physical exam and medical decision making. Eldon Sin Aug 13, 2022,11:40 BILLY NESS Aug 13, 2022 10:03 ELDON SIN DO Aug 13, 2022 11:41
[2022-08-13 10:28] LABS: BASOPHILS % (AUTO) 0 % (0-10); EOSINOPHILS % (AUTO) 0 % (0-10); HEMATOCRIT 32 % (35-52); HEMOGLOBIN 10.4 g/dL (11.5-16.0); LYMPHOCYTES % (AUTO) 18 % (12-44); MEAN CORPUSCULAR HEMOGLOBIN 24 pg (25-34); MEAN CORPUSCULAR HGB CONC 32 g/dL (32-36); MEAN CORPUSCULAR VOLUME 74 fL (80-99); MEAN PLATELET VOLUME 11.3 fL (9.0-12.2); MONOCYTES # (AUTO) 0.9 10^3/uL (0.0-1.0); MONOCYTES % (AUTO) 8 % (0-12); NEUTROPHILS # (AUTO) 8.1 10^3/uL (1.8-7.8); NEUTROPHILS % (AUTO) 73 % (42-75); PLATELET COUNT 206 10^3/uL (130-400); WHITE BLOOD COUNT 11.1 10^3/uL (4.3-11.0)
[2022-08-13] MEDS ORDERED: fentaNYL 2 mcg/ml BUPIVA 0.125 100 ML ONE (12:53)
[2022-08-13] MEDS ORDERED: fentaNYL INJ 100 MCG/2 ML AMP ONE (12:58)
[2022-08-13] MEDS ORDERED: BUPIVACAINE 0.25% 10 ML (SENSORCAINE) VIAL ONE (12:58)
[2022-08-13] MEDS ORDERED: fentaNYL 2 mcg/ml BUPIVA 0.125 100 ML IV SCH (13:45)
[2022-08-13] MEDS ORDERED: NALOXONE 0.4 MG/ML 1 ML (NARCAN) VIAL IV PRN ×2 (13:45→15:45)
[2022-08-13] MEDS ORDERED: CATHETER FLUSH 10 ML SYR IV PRN (13:45)
[2022-08-13] MEDS ORDERED: LACTATED RINGERS 1,000 ML IV ONE (13:45)
[2022-08-13] MEDS ORDERED: AMPICILLIN FOR IV USE 1,000 MG in NS (IVPB) 50 ML IV SCH (14:00)
[2022-08-13] MEDS ORDERED: CATHETER FLUSH 10 ML SYR IV SCH ×2 (14:00→22:00)
[2022-08-13] MEDS ORDERED: OXYTOCIN PRE-MIX DRIP 500 ML IV SCH ×2 (14:30→15:45)
[2022-08-13] MEDS ORDERED: MEASLES,MUMPS,RUBELLA 1 EA INJ SQ ONE (15:45)
[2022-08-13] MEDS ORDERED: TETANUS,DIPTH,PERTUSS P/F (BOOSTRIX) 0.5 ML VIAL IM ONE (15:45)
[2022-08-13] MEDS ORDERED: DIBUCAINE 1% OINTMENT 28 GM TUBE TOP PRN (15:45)
[2022-08-13] MEDS ORDERED: WITCH HAZEL(TUCKS) 40 EA JAR TOP PRN (15:45)
[2022-08-13] MEDS ORDERED: BENZOCAINE/MENTHOL (DERMOPLAST) 56 ML CAN TP PRN (15:45)
[2022-08-13] MEDS ORDERED: HYDROcodone/APAP 5 MG/325 MG (LORTAB) TAB PO PRN (15:45)
--- NOTE | 2022-08-13 15:46 | Discharge Inst-Women's Service ---
Discharge Inst-Women's Serv Depart Medication/Instructions New, Converted or Re-Newed RX: Transmitted to Pharmacy Final Diagnosis PPD 1 NVD Problems Reviewed?: Yes Consults/Follow Up Additional Follow Up: Yes Orders/Referrals Dr. Camacho in 6 weeks Activity Activity: Activity as Tolerated Driving Instructions: No Driving for 1 Week NO SMOKING: NO SMOKING Nothing Inside Vagina: No Douching, No [place], No Tampons Diet Discharge Diet: No Restrictions Symptoms to Report to : Bleeding Excessive, Pain Increased, Fever Over 101 Degrees F, Vaginal Bleeding Increase, Questions/Concerns For Any Problems or Questions: Contact Your Physician HAYLIE CAMACHO DO Aug 13, 2022 15:46
[2022-08-13] MEDS ORDERED: IBUP-844 PO (15:48)
[2022-08-13] MEDS ORDERED: ACHD5005 PO (15:48)
[2022-08-13] MEDS ORDERED: DOCU100C37 PO (15:48)
[2022-08-13] MEDS ORDERED: BENZ78AE5 TP (15:48)
[2022-08-13] MEDS ORDERED: FERR325T24 PO (15:48)
--- NOTE | 2022-08-13 15:51 | OB Labor & Delivery Record ---
L&D History Date of Service Date of Service: Aug 13, 2022 History Expected Date of Delivery: Aug 21, 2022 Gestational Age in Weeks: 38 Hx : 4 Hx Para: 2 Complications Events: Routine care Operative Indications (Cesarea: N/A-Vaginal Delivery Intrapartal Events: None L&D Stage1 Stage One Onset of Labor - Date: Aug 13, 2022 Monitors and Tracing Monitor Mode: External Heart Rate: 140 Monitor Accelerations: Uniform Monitor Decelerations: None Station: -3 High School Counselor Variability: Average (6-10) Vital Signs VS - Last 72 Hours, by Label 08/13/22 08/13/22 08/13/22 08/13/22 09:10 13:01 13:04 13:07 Temp 36.9 Pulse 109 107 105 108 Resp 18 18 18 18 B/P (MAP) 157/91 (113) 166/96 (119) 148/79 (102) Pulse Ox 97 100 99 99 O2 Delivery Room Air Room Air Room Air Room Air 08/13/22 08/13/22 13:10 13:13 Pulse 107 111 Resp 18 18 B/P (MAP) 153/88 (109) 145/82 (103) Pulse Ox 98 97 O2 Delivery Room Air Room Air Rupture of Membranes Spontaneous Ruture of Membrane: No Amniotic Membrane Rupture Time: 12:05 Amniotic Membrane Fluid Desc.: Clear Vaginal Bleeding Description: Normal Show Induction/Anesthesia Epidural Cath Placement - Time: 1314 Progress/Notes Patient admitted in active labor, AROM performed and epidural placed, she rapidly progressed to complete and + 2 station. L&D Stage2 Stage Two Stage II Date: Aug 13, 2022 Monitors and Tracing Monitor Mode: External Heart Rate: 140 Monitor Accelerations: Uniform Monitor Decelerations: Variable Chcf Variability: Average (6-10) Short Term Variability: Present Position: Right Occiput Anterior Presentation: Vertex Cord Descript/Complications Cord Vessel Description: 3 Vessels Delivery Type Infant Delivery Method: Spontaneous Vaginal Anterior Shoulder: Left Episiotomy/Perineal Laceration Laceraction(s)/Extensions: Yes Degree (describe repair) clitoral laceration and 1st degree perineal laceration repaired using 3-0 rapide in usual fashion. Condition of Delivery 1 minute Comment: 8 5 minute Comment: 9 Notes Live female infant weight 7lbs 12 oz Condition of Infant Condition of : Living Exam: No Observed Abnormalities Resuscitation Resuscitation: N/A - Spontaneous Resp Delivery Summary Summary Estimated blood loss (mL): 300 Attending at delivery: Haylie Camacho DO Condition of Delivery Examined: Cervix Examined, Uterus Explored Post Hemorrhage: No Condition of Mother stable Condition of (s) stable HAYLIE CAMACHO DO Aug 13, 2022 15:51
[2022-08-13] MEDS: IBUPROFEN 600 MG (MOTRIN) TAB PO SCH ×2 (18:05→23:59)
[2022-08-13] MEDS: DOCUSATE SODIUM 100 MG (COLACE) CAP PO SCH (21:38)
[2022-08-14 05:33] LABS: BASOPHILS % (AUTO) 0 % (0-10); EOSINOPHILS % (AUTO) 0 % (0-10); HEMATOCRIT 29 % (35-52); HEMOGLOBIN 9.2 g/dL (11.5-16.0); LYMPHOCYTES # (AUTO) 2.2 10^3/uL (1.0-4.0); LYMPHOCYTES % (AUTO) 19 % (12-44); MEAN CORPUSCULAR HEMOGLOBIN 24 pg (25-34); MEAN CORPUSCULAR HGB CONC 32 g/dL (32-36); MEAN CORPUSCULAR VOLUME 74 fL (80-99); MONOCYTES % (AUTO) 9 % (0-12); NEUTROPHILS # (AUTO) 8.1 10^3/uL (1.8-7.8); NEUTROPHILS % (AUTO) 71 % (42-75); PLATELET COUNT 166 10^3/uL (130-400); WHITE BLOOD COUNT 11.5 10^3/uL (4.3-11.0)
[2022-08-14 06:19] VITALS: BP 129/82
[2022-08-14] MEDS: IBUPROFEN 600 MG (MOTRIN) TAB PO SCH ×3 (06:20→16:36)
[2022-08-14] MEDS ORDERED: PRENATAL VITAMIN 1 EA TAB PO SCH (07:00)
--- NOTE | 2022-08-14 08:41 | Postpartum Progress Note ---
Note Note Day # 1 Subjective: Patient is without complaints. Ambulating, voiding. Tolerating a regular diet without nausea or vomiting. Normal lochia. Pain is well controlled with oral pain medications. Physical Exam: General - Alert and oriented, no apparent distress Abdomen - Soft, appropriately tender to palpation, non-distended, fundus firm at umbilicus Extremities - no edema, negative Yomi's bilaterally Assessment: Post- day # 1, status post vaginal delivery. Recovering well, hemodynamically stable Acute blood loss anemia Plan: Routine care. Encourage breast feeding. Encourage ambulation. Ferrous sulfate supplementation. Plan for discharge today Vitals - Labs Vital Signs - I&O Vital Signs Date Time Temp Pulse Resp B/P (MAP) Pulse Ox O2 Delivery O2 Flow Rate FiO2 08/14/22 06:19 36.5 92 18 129/82 (98) 97 Room Air 08/13/22 23:58 36.6 90 18 132/77 (95) 97 Room Air 08/13/22 21:38 36.6 100 18 138/84 (102) 98 Room Air 08/13/22 18:00 36.5 99 18 128/66 (86) Room Air 08/13/22 17:45 102 18 127/67 (87) Room Air 08/13/22 17:30 103 18 139/71 (93) Room Air 08/13/22 17:15 107 18 131/69 (89) Room Air 08/13/22 17:00 96 18 131/76 (94) Room Air 08/13/22 16:45 36.6 105 18 135/80 (98) Room Air 08/13/22 16:30 93 18 129/75 (93) Room Air 08/13/22 16:15 93 18 132/78 (96) Room Air 08/13/22 16:00 104 18 130/78 (95) 99 Room Air 08/13/22 15:45 36.5 117 18 121/73 (89) 98 Room Air 08/13/22 15:15 117 18 145/88 (107) 99 Room Air 08/13/22 15:00 103 18 137/90 (106) 99 Room Air 08/13/22 14:45 104 18 127/68 (87) 97 Room Air 08/13/22 14:30 106 18 126/68 (87) 97 Room Air 08/13/22 14:15 102 18 127/77 (94) 99 Room Air 08/13/22 14:10 103 18 122/74 (90) 98 Room Air 08/13/22 14:05 106 18 125/75 (92) 98 Room Air 08/13/22 14:00 36.3 105 18 133/79 (97) 97 Room Air 08/13/22 13:55 109 18 137/80 (99) 99 Room Air 08/13/22 13:50 103 18 132/79 (96) 98 Room Air 08/13/22 13:45 109 18 138/81 (100) 98 Room Air 08/13/22 13:40 109 18 133/74 (93) 98 Room Air 08/13/22 13:35 109 18 132/72 (92) 98 Room Air 08/13/22 13:30 107 18 129/66 (87) 97 Room Air 08/13/22 13:25 110 18 139/83 (101) 97 Room Air 08/13/22 13:20 114 18 140/79 (99) 98 Room Air 08/13/22 13:13 111 18 145/82 (103) 97 Room Air 08/13/22 13:10 107 18 153/88 (109) 98 Room Air 08/13/22 13:07 108 18 148/79 (102) 99 Room Air 08/13/22 13:04 105 18 166/96 (119) 99 Room Air 08/13/22 13:01 107 18 157/91 (113) 100 Room Air 08/13/22 11:50 36.2 93 18 131/88 (102) 98 Room Air 08/13/22 09:10 36.9 109 18 97 Room Air Labs Laboratory Tests 08/13/22 10:15: White Blood Count 11.1H, Red Blood Count 4.36, Hemoglobin 10.4L, Hematocrit 32L, Mean Corpuscular Volume 74L, Mean Corpuscular Hemoglobin 24L, Mean Corpuscular Hemoglobin Concent 32, Red Cell Distribution Width 14.6H, Platelet Count 206, Mean Platelet Volume 11.3, Immature Granulocyte % (Auto) 1, Neutrophils (%) (Auto) 73, Lymphocytes (%) (Auto) 18, Monocytes (%) (Auto) 8, Eosinophils (%) (Auto) 0, Basophils (%) (Auto) 0, Neutrophils # (Auto) 8.1H, Lymphocytes # (Auto) 2.0, Monocytes # (Auto) 0.9, Eosinophils # (Auto) 0.0, Basophils # (Auto) 0.0, Immature Granulocyte # (Auto) 0.1, Syphilis Serology Non-Reactive 08/14/22 05:14: White Blood Count 11.5H, Red Blood Count 3.89, Hemoglobin 9.2L, Hematocrit 29L, Mean Corpuscular Volume 74L, Mean Corpuscular Hemoglobin 24L, Mean Corpuscular Hemoglobin Concent 32, Red Cell Distribution Width 14.7H, Platelet Count 166, Mean Platelet Volume 11.0, Immature Granulocyte % (Auto) 1, Neutrophils (%) (Auto) 71, Lymphocytes (%) (Auto) 19, Monocytes (%) (Auto) 9, Eosinophils (%) (Auto) 0, Basophils (%) (Auto) 0, Neutrophils # (Auto) 8.1H, Lymphocytes # (Auto) 2.2, Monocytes # (Auto) 1.0, Eosinophils # (Auto) 0.0, Basophils # (Auto) 0.0, Immature Granulocyte # (Auto) 0.1 RAISA DIAZ APRN Aug 14, 2022 08:41
[2022-08-14] MEDS ORDERED: FERROUS SULF 325 MG (IRON) TAB PO SCH (09:00)
[2022-08-14 09:11] VITALS: BP 135/85
[2022-08-14] MEDS: DOCUSATE SODIUM 100 MG (COLACE) CAP PO SCH (09:14)
[2022-08-14 12:23] VITALS: BP 142/79
--- NOTE | 2022-08-14 12:34 | Anesthesia-Regional Post-Op ---
Regional Patient Condition Mental Status: Alert, Oriented x3 Circulation: Same as Pre-Op Headache: Absent Sensation: Full Recovery Motor Block: Absent Post Op Complications Complications None Follow Up Care/Instructions Patient Instructions None needed. Anesthesia/Patient Condition Patient is doing well, no complaints, stable vital signs, no apparent adverse anesthesia problems. No complications reported per nursing. ZHAO DOYLE CRNA Aug 14, 2022 12:34
[2022-08-14 16:35] VITALS: BP 136/90
== END 2022-08-14 17:10 | disposition home or self-care (01) | DRG 806 ==
LOC: LDRP 08:43 → WSo 08:43 → LDRP 10:00
PROVIDERS: ADMIT Obstetrics & Gynecology; ATTEND Obstetrics & Gynecology
PROC: 10E0XZZ Delivery of Products of Conception, External Approach (ICD-10-PCS; principal; 2022-08-13)
PROC: 10907ZC Drainage of Amniotic Fluid, Therapeutic from Products of Conception, Via Natural or Artificial Opening (ICD-10-PCS; 2022-08-13)
PROC: 0HQ9XZZ Repair Perineum Skin, External Approach (ICD-10-PCS; 2022-08-13)
DX: O99.824 Streptococcus B carrier state complicating childbirth (principal); D62 Acute posthemorrhagic anemia; Z37.0 Single live birth; Z3A.38 38 weeks gestation of pregnancy; O70.0 First degree perineal laceration during delivery; O90.81 Anemia of the puerperium
CPT/HCPCS: 36415; 85025; 86780; 86850; 86900; 86901; 99213

== ENCOUNTER 2022-11-14 09:07 | Emergency (ER) | payer OTHER, MEDICAID ==
[~2022-11-14] VITALS: Ht 157.5 cm; Wt 68.0 kg
[~2022-11-14 09:07] MED LIST changes: +ACHD5005 PO; +BENZ78AE5 TP; +FERR325T24 PO; +IBUP-844 PO
[2022-11-14 09:41] LABS: BILIRUBIN,URINE NEGATIVE (NEGATIVE); CLARITY,URINE SL CLOUDY; COLOR,URINE YELLOW; GLUCOSE, URINE (UA) NEGATIVE (NEGATIVE); KETONES,URINE NEGATIVE (NEGATIVE); LEUKOCYTE ESTERASE ,URINE 3+ (NEGATIVE); NITRITE,URINE NEGATIVE (NEGATIVE); PROTEIN,URINE 1+ (NEGATIVE)
--- NOTE | 2022-11-14 09:59 | ED General ---
General Chief Complaint: Back Problems Stated Complaint: LOWER BACK PAIN | KIDNEY PAIN Nursing Triage Note: PT AMBULATE TO ROOM 07 WITHOUT DIFFICULTY WITH C/O LOWER BACK PAIN STARTING LAST NIGHT. PT REPORTS HX OF PYLONEPHRITIS. (MARK ANTHONY MCNALLY) History of Present Illness Date Seen by Provider: Nov 14, 2022 Time Seen by Provider: 09:40 Initial Comments Pt is a 32 year old female who arrived to the ED POV, who presents with bilateral lower back pain and feels cold. Pt states that her pain is constant, cramping and is a 7/10. Pt denies any changes in urination or bowel movements. Pt has a significant history of pyelonephritis, in which she was hospitalized for two days approximately 2 years ago. Pt has had a recent, uncomplicated childbirth 3 months ago. Pt is . (MARK ANTHONY MCNALLY) Initial Comments Patient was interviewed and examined by me along with Rik Mcnally, MS2. She reports chills without fever. She has experienced frequency without dysuria. She denies as had vasectomy. She has tachycardia during assessment. (QUIN RUIZ MD) Allergies and Home Medications Allergies Coded Allergies: No Known Drug Allergies (Unverified , 12/30/19) Patient Home Medication List Home Medication List Reviewed: Yes (QUIN RUIZ MD) Benzocaine/Menthol (Dermoplast Pain Relieving Rivereno) 20 %-0.5 % Aerosol, 56 EA TP UD PRN for PAIN- SEE INSTRUCTIONS Prescribed by: HAYLIE CAMACHO on 08/13/22 154 Docusate Sodium (Docusate Sodium) 100 Mg Capsule, 100 MG PO BID PRN for CONSTIPATION-1ST LINE Prescribed by: HAYLIE CAMACHO on 08/13/22 154 Ferrous Sulfate (Ferosul) 325 Mg (65 Mg Iron) Tablet, 325 MG PO DAILY Prescribed by: HAYLIE CAMACHO on 08/13/22 154 Hydrocodone/Acetaminophen (Hydrocodone-Acetamin 5-325 mg) 5 Mg-325 Mg Tablet, 1 EA PO Q4H PRN for PAIN-MODERATE (5-7) Prescribed by: HAYLIE CAMACHO on 08/13/22 154 Ibuprofen (Ibu) 600 Mg Tablet, 600 MG PO Q6H Prescribed by: HAYLIE CAMACHO on 08/13/22 1548 Nitrofurantoin Monohyd/M-Cryst (Macrobid 100 mg Capsule) 100 Mg Capsule, 1 CAP PO BID Prescribed by: QUIN MCFADDEN on 11/14/22 1053 Rdn544/FA/Omega3/Dha/Fish Oil ( Gummies) 1 Each Tab.chew, 2 EACH PO DAILY, (Reported) Entered as Reported by: CAM CORTEZ on 10/28/20 1818 Review of Systems Review of Systems Constitutional: see HPI, chills; No fever EENTM: no symptoms reported Respiratory: no symptoms reported Cardiovascular: see HPI Gastrointestinal: no symptoms reported Genitourinary: see HPI : No Musculoskeletal: see HPI Skin: no symptoms reported Psychiatric/Neurological: No Symptoms Reported Hematologic/Lymphatic: No Symptoms Reported Immunological/Allergic: no symptoms reported (QUIN RUIZ MD) Past Tsuuugm-[id number] Hx Patient Social History Tobacco Use?: No Smoking Status: Never a Smoker Smokeless Tobacco Frequency: Never a User Use of E-Cig and/or Vaping [place]: Never a User Substance use?: No Alcohol Use?: Yes Alcohol Frequency: Rarely Pt feels they are or have been: No (MARK ANTHONY MCNALLY) Seasonal Allergies Seasonal Allergies: Yes (MARK ANTHONY MCNALLY) Past Medical History Surgery/Hospitalization HX: na Surgeries: Yes (wisdom teeth, DNC) Respiratory: No Cardiac: No Neurological: No Female Reproductive Disorders: Denies Genitourinary: No Gastrointestinal: No Musculoskeletal: No Endocrine: No HEENT: No Cancer: No Psychosocial: No Integumentary: No Blood Disorders: No Adverse Reaction/Blood Tranf: No (MARK ANTHONY MCNALLY) Surgeries: Yes (wisdom teeth) Respiratory: No Cardiac: No Neurological: No : No Genitourinary: Yes Kidney Infection (history of pyelonephritis) Gastrointestinal: No Musculoskeletal: No Endocrine: No HEENT: No Cancer: No Psychosocial: No Integumentary: No (QUIN RUIZ MD) Family Medical History Hypertension (Mother) Physical Exam Vital Signs Vital Signs - First Documented 11/14/22 09:12 Temp 36.2 Pulse 109 Resp 19 B/P (MAP) 142/92 (109) O2 Delivery Room Air (QUIN RUIZ MD) Vital Signs Capillary Refill : Less Than 3 Seconds (MARK ANTHONY MCNALLY) Height, Weight, BMI Height: 5'2.00" Weight: 155lbs. 6.0oz. 70.637693et; 27.00 BMI Method: (MARK ANTHONY MCNALLY) General Appearance: No Apparent Distress, WD/WN HEENT: PERRL/EOMI, Normal ENT Inspection Neck: Normal Inspection Respiratory: Lungs Clear, Normal Breath Sounds, No Accessory Muscle Use Cardiovascular: No Edema, No Murmur, Tachycardia (regular) Gastrointestinal: Normal Bowel Sounds, Non Tender, Soft; No Distended Back: No CVA Tenderness Extremity: Normal Inspection, No Pedal Edema Neurologic/Psychiatric: Alert, Oriented x3, No Motor/Sensory Deficits, Normal Mood/Affect Skin: Normal Color, Warm/Dry (QUIN RUIZ MD) Progress/Results/Core Measures Suspected Sepsis SIRS Temperature: Pulse: 109 Respiratory Rate: 19 Laboratory Tests 11/14/22 09:16: White Blood Count 11.8H Blood Pressure 142 /92 Mean: 109 Laboratory Tests 11/14/22 09:16: Creatinine 0.70, Platelet Count 189 (MARK ANTHONY MCNALLY) Results/Orders Lab Results Laboratory Tests Test 11/14/22 09:12 11/14/22 09:16 Range/Units Urine Color YELLOW Urine Clarity SL CLOUDY Urine pH 6.0 5-9 Urine Specific [place] <=1.005 1.016-1.022 Urine Protein 1+ H NEGATIVE Urine Glucose (UA) NEGATIVE NEGATIVE Urine Ketones NEGATIVE NEGATIVE Urine Nitrite NEGATIVE NEGATIVE Urine Bilirubin NEGATIVE NEGATIVE Urine Urobilinogen 0.2 < = 1.0 MG/DL Urine Leukocyte Esterase 3+ H NEGATIVE Urine RBC (Auto) 3+ H NEGATIVE Urine RBC 10-25 H /HPF Urine WBC 50-100 H /HPF Urine Squamous Epithelial Cells RARE /HPF Urine Crystals NONE /LPF Urine Bacteria MODERATE H /HPF Urine Casts NONE /LPF Urine Mucus NEGATIVE /LPF Urine Culture Indicated YES White Blood Count 11.8 H 4.3-11.0 10^3/uL Red Blood Count 5.51 H 3.80-5.11 10^6/uL Hemoglobin 14.4 11.5-16.0 g/dL Hematocrit 43 35-52 % Mean Corpuscular Volume 78 L 80-99 fL Mean Corpuscular Hemoglobin 26 25-34 pg Mean Corpuscular Hemoglobin Concent 34 32-36 g/dL Red Cell Distribution Width 16.2 H 10.0-14.5 % Platelet Count 189 130-400 10^3/uL Mean Platelet Volume 10.5 9.0-12.2 fL Immature Granulocyte % (Auto) 0 % Neutrophils (%) (Auto) 78 H 42-75 % Lymphocytes (%) (Auto) 15 12-44 % Monocytes (%) (Auto) 6 0-12 % Eosinophils (%) (Auto) 0 0-10 % Basophils (%) (Auto) 0 0-10 % Neutrophils # (Auto) 9.2 H 1.8-7.8 10^3/uL Lymphocytes # (Auto) 1.8 1.0-4.0 10^3/uL Monocytes # (Auto) 0.7 0.0-1.0 10^3/uL Eosinophils # (Auto) 0.0 0.0-0.3 10^3/uL Basophils # (Auto) 0.0 0.0-0.1 10^3/uL Immature Granulocyte # (Auto) 0.1 0.0-0.1 10^3/uL Sodium Level 140 135-145 MMOL/L Potassium Level 3.8 3.6-5.0 MMOL/L Chloride Level 107 98-107 MMOL/L Carbon Dioxide Level 21 21-32 MMOL/L Anion Gap 12 5-14 MMOL/L Blood Urea Nitrogen 9 7-18 MG/DL Creatinine 0.70 0.60-1.30 MG/DL Estimat Glomerular Filtration Rate 119 BUN/Creatinine Ratio 13 Glucose Level 102 70-105 MG/DL Calcium Level 9.9 8.5-10.1 MG/DL C-Reactive Protein High Sensitivity 0.71 H 0.00-0.50 MG/DL Serum Test, Qualitative NEGATIVE NEGATIVE (QUIN RUIZ MD) My Orders Orders - QUIN RUIZ MD Ua Culture If Indicated (11/14/22 09:31) Urine Bedside (11/14/22 09:31) Basic Metabolic Panel (11/14/22 09:49) Cbc With Automated Diff (11/14/22 09:49) Hs C Reactive Protein (11/14/22 09:49) Hcg,Qualitative Serum (11/14/22 09:49) Ed Iv/Invasive Line Start (11/14/22 09:49) Lactated Ringers (Lr 1000 Ml Iv Solution (11/14/22 10:00) Ketorolac Injection (Toradol Injection) (11/14/22 10:00) Urine Culture (11/14/22 09:12) Ceftriaxone Iv/Im (Rocephin Iv/Im) (11/14/22 10:41) (QUIN RUIZ MD) Medications Given in ED (QUIN RUIZ MD) Vital Signs/I&O 11/14/22 11/14/22 09:12 11:26 Temp 36.2 36.2 Pulse 109 109 Resp 19 19 B/P (MAP) 142/92 (109) 142/92 O2 Delivery Room Air Room Air (QUIN RUIZ MD) Vital Signs/I&O Capillary Refill : Less Than 3 Seconds (MARK ANTHONY MCNALLY) Blood Pressure Mean: 109 Progress Note : Progress Note Labs were reviewed and interpreted by me including CBC, BMP, CRP, serum test, and UA. WBC minimally elevated at 11.8. No significant elevation in CRP. BMP was unremarkable. UA demonstrated pyuria consistent with UTI. Patient was teated with Toradol with good results. She was hydrated with 1 liter of LR. Rocephin was administered for initial treatment of antibiotics. (QUIN RUIZ MD) Departure Impression Primary Impression: Urinary tract infection Qualified Codes: N39.0 - Urinary tract infection, site not specified Additional Impression: Low back pain Qualified Codes: M54.50 - Low back pain, unspecified Disposition: 01 HOME, SELF-CARE Condition: Improved Departure-Patient Inst. Decision time for Depature: 10:49 (QUIN RUIZ MD) Referrals: TIFFANY MAY MD (PCP/Family) Primary Care Physician Patient Instructions: Urinary Tract Infection, Adult ED Add. Discharge Instructions: Drink plenty of clear liquids to stay well-hydrated. Urinate often to help flush out your bladder. Start your oral antibiotics within the next 24 hours and complete the entire course of antibiotics as prescribed. A culture is being performed on your urine specimen. Sensitivities on this culture should be available in [address] ease review these culture results with your primary care provider to ensure the antibiotic you are taking is most appropriate for the bacteria grown. You are being prescribed nitrofurantoin (Macrobid). This medication may turn your urine and orange or reddish color. Please do not be alarmed at this appearance. For discomfort you may take ibuprofen up to 600 mg every 6 hours as needed and/or Tylenol (acetaminophen) up to 1000 mg every 6 hours as needed. Return to the emergency room if you have worsening symptoms, especially if you develop fevers over 100.3 F, escalating pain despite using [id number] medications, or other worsening symptoms. All discharge instructions reviewed with patient and/or family. Voiced understanding. Scripts Nitrofurantoin Monohyd/M-Cryst (Macrobid 100 mg Capsule) 100 Mg Capsule 1 CAP PO BID, #10 CAP Prov: QUIN RUIZ MD 11/14/22 Medical Student Attestation and Attending Note: I have personally interviewed and examined this patient along with TYREE Lugo. I have reviewed student documentation including history, physical, and assessments. I agree with the documentation except where otherwise noted. (QUIN RUIZ MD) Copy Copies To 1: TIFFANY MAY MD, MACKENZIE Nov 14, 2022 09:59 QUIN RUIZ MD Nov 14, 2022 10:55
[2022-11-14] MEDS ORDERED: LACTATED RINGERS 1,000 ML IV ONE (10:00)
[2022-11-14] MEDS ORDERED: KETOROLAC 30 MG/ML VIAL IVP ONE (10:00)
[2022-11-14 10:01] LABS: BASOPHILS % (AUTO) 0 % (0-10); EOSINOPHILS % (AUTO) 0 % (0-10); HEMATOCRIT 43 % (35-52); HEMOGLOBIN 14.4 g/dL (11.5-16.0); LYMPHOCYTES # (AUTO) 1.8 10^3/uL (1.0-4.0); LYMPHOCYTES % (AUTO) 15 % (12-44); MEAN CORPUSCULAR HEMOGLOBIN 26 pg (25-34); MEAN CORPUSCULAR HGB CONC 34 g/dL (32-36); MEAN CORPUSCULAR VOLUME 78 fL (80-99); MEAN PLATELET VOLUME 10.5 fL (9.0-12.2); MONOCYTES # (AUTO) 0.7 10^3/uL (0.0-1.0); MONOCYTES % (AUTO) 6 % (0-12); NEUTROPHILS # (AUTO) 9.2 10^3/uL (1.8-7.8); NEUTROPHILS % (AUTO) 78 % (42-75); PLATELET COUNT 189 10^3/uL (130-400); WHITE BLOOD COUNT 11.8 10^3/uL (4.3-11.0)
[2022-11-14 10:11] LABS: POTASSIUM 3.8 MMOL/L (3.6-5.0)
[2022-11-14 10:12] LABS: CALCIUM 9.9 MG/DL (8.5-10.1)
[2022-11-14 10:15] LABS: BACTERIA,URINE MODERATE /HPF; SQUAMOUS EPITHELIAL CELL,UR RARE /HPF; WBC,URINE 50-100 /HPF
[2022-11-14 10:17] LABS: CREATININE SERUM 0.7 MG/DL (0.60-1.30)
[2022-11-14] MEDS ORDERED: cefTRIAXone IV/IM 1,000 MG in NS (IVPB) 50 ML IV STA (10:41)
[2022-11-14] MEDS ORDERED: NITR-65 PO (10:53)
[2022-11-14 11:26] VITALS: BP 142/92
== END 2022-11-14 11:26 | disposition home or self-care (01) ==
LOC: EDUNIT# 09:07 → ER 09:09
DX: N39.0 Urinary tract infection, site not specified (principal); M54.50 Low back pain, unspecified; Z28.310 Unvaccinated for COVID-19
CPT/HCPCS: 36415; 80048; 81000; 84703; 85025; 86141; 87077; 87088; 87186